=== PATIENT | male | born 1955 | race African-American/Black ===

== ENCOUNTER 2020-06-03 08:30 | Inpatient (IN) | payer MEDICAID, SELFPAY ==
[2020-06-03] VITALS (30 sets, daily range): BP systolic 110–130; BP diastolic 77–103; PULSE 102–119; RESP 14–29; TEMP 35.9–36.8; O2SAT 96–100; BMI 18.2
--- NOTE | ~2020-06-03 | US_ITS ---
EXAMINATION:US venous doppler LE BI INDICATION:Leg pain TECHNIQUE: Multiple grayscale, color flow and Doppler images of the right and left lower extremity de ep venous systems were obtained and reviewed. COMPARISON:No prior studies for comparison. FINDINGS: The common femoral, superficial femoral and popliteal veins demonstrate normal respiratory variation, augmentation and compressibility. Color flow is also seen within the posterior tibial, pe roneal, greater saphenous and profunda veins. IMPRESSION: 1: No lower extremity deep venous thrombosis. Reviewed, dictated and finalized at location A. IC SPEAKING TEACHER
--- NOTE | ~2020-06-03 | XR_ITS ---
EXAMINATION: XR mandible min 4V EXAM DATE: 06/04/2020 09:54 INDICATION: checking for metal in jaw. TECHNIQUE: Frontal, steep frontal, bilateral lateral with tilt projections of the mandible. There i s no prior study for comparison. FINDINGS: There are 2 orthopedic metallic plates along the mandible with supporting screws. Hardware was likely for mandibular fractures which appear to have healed. Patient is edentulous. There is a m etal neck less which reportedly cannot be taken off and patient is declining having it cut off at thi s time. IMPRESSION: Metallic neck less, mandibular plates and screws. Reviewed, dictated and finalized at location A. MATIC LEHR OPERATOR
--- NOTE | ~2020-06-03 | CT_ITS ---
EXAMINATION: CTA chest PE protocol DATE: 06/03/2020 13:12 INDICATION: Possible pulmonary embolism on abdominal and pelvis CT, fall TECHNIQUE: Computed tomography angiography (CTA) of the chest was performed with 100 mL Omnipaque-350 intravenous contrast timed to evaluate the pulmonary arteries. Coronal maximum intensity projection 3D-reconstructions were created by the technologist. The dose-length product (DLP) was 278.66 mGy-cm. Automated exposure control and iterative reconstruction technique were employed. COMPARISON: None. FINDINGS: The pulmonary arteries are well-opacified. No pulmonary embolism is identified. There is en dobronchial debris in the right lower lobe which accounts for the finding in question on the abdomina l and pelvis CT. There are patchy nodular and tree-in-bud opacities of the right lower lobe. There is mild emphysema. No pathologically enlarged thoracic lymph nodes are identified. The heart size is no rmal. There is mild thoracic spondylosis. Contrast from earlier CT partially opacifies the urinary tr act. IMPRESSION: 1. No pulmonary embolism identified. 2. Endobronchial debris in the right lower lobe accounts for the CT finding in question. Tree-in-bud and patchy nodular airspace opacities of the right lower lobe likely reflect aspiration pneumonia. Reviewed, dictated and finalized at location A. UCT CONTROL AND LOGISTICS ANALYST
--- NOTE | ~2020-06-03 | CT_ITS ---
EXAMINATION: CT abdomen pelvis w con INDICATION: Hematuria TECHNIQUE: Computed tomographic images of the abdomen and pelvis were obtained after the administrati on of 100 cc of Omnipaque 350 intravenous contrast. The dose-length product (DLP) was 284.58 mGy-cm. Automated exposure control and iterative reconstruction technique were employed. COMPARISON: None available FINDINGS: Airspace opacities are present in the right lower lobe. Although limited by motion artifact there are questionable pulmonary emboli in the right lower lobe. The heart size is normal. The liver is diffusely low in attenuation when compared with the spleen, consistent with hepatic steatosis. Th e spleen, pancreas, gallbladder, and adrenal glands are normal. The kidneys are unremarkable. No path ologically enlarged abdominal or pelvic lymph nodes are identified. There is calcified atherosclerosi s of the aorta and many of the other arteries. The appendix is normal. There is no free intraperitone al gas or evidence of bowel obstruction. There are tiny stones in the urinary bladder which measure u p to 2 mm. Foci of gas in the nondependent portion of the urinary bladder may reflect catheterization . There is hyperattenuating material in the urethra of unclear significance. There is circumferential wall thickening of the sigmoid colon. There is mild lumbar spondylosis. IMPRESSION: 1. Tiny stones in the urinary bladder which may cap for the patient's hematuria. 2. Possible pulmonary emboli in the right lower lobe. Dedicated CT of the pulmonary arteries is recom mended. This finding and recommendation were discussed with Dr. Any Caceres MD in the Emergency De partment at 1233hours on 06/03/2020. 3. Mild wall thickening of the sigmoid colon which could reflect colitis. 4. Right basilar airspace opacities which could be infectious/inflammatory or possibly pulmonary infa rct if pulmonary emboli are present. Reviewed, dictated and finalized at location A. T TECHNICIAN IMPRESSION: 1. Tiny stones in the urinary bladder which may cap for the patient's hematuria . 2. Possible pulmonary emboli in the right lower lobe. Dedicated CT of the pulmo nary arteries is recommended. This finding and recommendation were discussed wi Dr. Any Caceres MD in the Emergency Department at 1233hours on 06/03/2020 . 3. Mild wall thickening of the sigmoid colon which could reflect colitis. 4. Right basilar airspace opacities which could be infectious/inflammatory or p ossibly pulmonary infarct if pulmonary emboli are present.
--- NOTE | ~2020-06-03 | XR_ITS ---
EXAMINATION: XR chest 1V portable EXAM DATE: 06/03/2020 10:05 INDICATION: weakness . TECHNIQUE: Portable AP frontal chest x-ray was obtained. There is no prior study for comparison. FINDINGS: Small amount of right infrahilar atelectasis or infection. The lungs are otherwise clear. M oderate hyperinflation. There are no pleural effusions. The cardiomediastinal silhouette is within n ormal limits. There is no pneumothorax suspected. The bones and soft tissues are unremarkable. IMPRESSION: 1. Small amount of right infrahilar atelectasis or infection. 2. Hyperinflation. Reviewed, dictated and finalized at location B. EX CLERK
--- NOTE | ~2020-06-03 | CT_ITS ---
EXAMINATION: CT brain wo con EXAM DATE: 06/03/2020 13:13 INDICATION: Head injury. TECHNIQUE: Spiral CT of the head was performed without contrast. Axial, coronal and sagittal images were reviewed. The dose-length product (DLP) for this examination was 1210.67 mGy-cm. The exposure was tailored according to patient size, and iterative reconstruction (ASIR) was used as additional do se reduction technique. There is no prior study for comparison. FINDINGS: There is no acute intraparenchymal hemorrhage. No evidence of intraparenchymal brain mass lesion. No evidence of acute infarction. There is no mass effect or midline shift. The ventricles are normal in size. There are no extra-axial collections. There are no acute calvarial fractures. T he orbits are unremarkable. Soft tissue is unremarkable. The visualized sinuses and mastoid air óscar ls are well aerated. Contrast within the arteries and sinuses from abdominal CT performed earlier s . IMPRESSION: No acute intracranial findings. Reviewed, dictated and finalized at location B. INE MAINTENANCE MECHANIC
--- NOTE | ~2020-06-03 | MR_ITS ---
EXAMINATION: MR brain/brain stem wo/w con EXAM DATE: 06/04/2020 10:51 INDICATION: Weakness and falling head injury. TECHNIQUE: Magnetic resonance imaging (MRI) of the brain/brain stem obtained without contrast. Sagit kush T1, axial diffusion, gradient echo (T2*), T1, T2, FLAIR sequences obtained. Patient was then inj ected with 12 cc intravenous Multihance contrast. Axial and coronal postcontrast T1 weighted sequence s obtained. Correlation is made to Head CT from 06/03. FINDINGS: There are no areas of restricted diffusion to suggest acute infarction. There is no acute hemorrhage seen on the T2*, a hemosiderin sensitive sequence. No intraparenchymal brain mass lesion. There is mild periventricular and subcortical T2/FLAIR signal hyperintensity, nonspecific but probab ly related to small vessel ischemic disease (microangiopathy). There is mild to moderate prominence of the sulci and ventricles related to cerebral atrophy. There are no extra-axial collections. Fl ow voids are seen in the cerebral arteries on the T2-weighted sequences consistent with their expecte d patency. The orbits are unremarkable. Soft tissue is unremarkable. IMPRESSION: 1. No acute intracranial findings. 2. Chronic age related findings. Reviewed, dictated and finalized at location A. NE TEST CELL TECHNICIAN
--- NOTE | ~2020-06-03 | MR_ITS ---
EXAMINATION: MR lumbar spine wo con DATE: 06/04/2020 14:42 INDICATION: Weakness. Bilateral paresthesias. TECHNIQUE: Magnetic resonance imaging (MRI) of the lumbar spine was performed without intravenous con trast. Sequences included sagittal T2-weighted FSE, sagittal STIR FSE, sagittal T1-weighted FSE, and axial T2-weighted FSE. COMPARISON: None FINDINGS: There is 3 mm retrolisthesis of L4 on L5. Vertebral body heights are normal. Intervertebral disc heights are normal. The distal spinal cord signal intensity is normal. The conus medullaris is at L2. The following disc levels are specifically discussed: L1-L2: The disc does not extend beyond the endplate margin. There is moderate bilateral facet joint o steoarthritis. There is no neural foraminal stenosis. There is no central canal stenosis. L2-L3: The disc is bulging. There is severe bilateral facet joint osteoarthritis. There is mild bilat eral neural foraminal stenosis. There is mild central canal stenosis. L3-L4: The disc is bulging. There is severe bilateral facet joint osteoarthritis. There is mild bilat eral neural foraminal stenosis. There is mild central canal stenosis. L4-L5: The disc is bulging and has an annular fissure. There is severe bilateral facet joint osteoart hritis. There is mild right and moderate left neural foraminal stenosis. There is mild central canal stenosis. L5-S1: The disc does not extend beyond the endplate margin. There is severe bilateral facet joint ost eoarthritis. There is no neural foraminal stenosis. There is no central canal stenosis. IMPRESSION: 1. Mild lumbar spondylosis. Reviewed, dictated and finalized at location E. INAL DEFENSE ATTORNEY IMPRESSION: 1. Mild lumbar spondylosis.
--- NOTE | ~2020-06-03 | US_ITS ---
EXAMINATION: US carotid duplex BI DATE: 06/03/2020 16:18 INDICATION: Difficulty walking. Numbness. TECHNIQUE: Grayscale, color Doppler, and pulsed Doppler images of the cervical carotid arteries were obtained. The degree of vessel stenosis is placed in one of the following categories: normal, <50%, 5 0-69%, >=70% but less than near-occlusion, near-occlusion, or total occlusion. Note that percent sten osis relative to normal distal artery lumen diameter is indirectly measured from velocity measurement s as described by Mike, et al. Radiology 2003; 229:340-346. Notes: Normal: Peak systolic velocity <125 centimeters/sec and no plaque <50%. Peak systolic velocity <125 ( EDV <40; ICA/CCA PSV ratio <2.0; used these factors only a tandem lesions or low cardiac output or co ntralateral disease) 50-69 %: PSV 125-230 (EDV 40-100; ratio 2-4) >= 70% but less than near occlusion: PSV greater than 230 (EDV > 100; ratio> 4.0) Near Occlusion: PSV that is variable; markedly narrowed lumen Occlusion: Absent flow on color/spectral Doppler and no lumen on king scale. COMPARISON: None. FINDINGS: RIGHT: The right common carotid artery (CCA) peak systolic velocity (PSV) is 69 cm/s. The right internal car otid artery (ICA) PSV is 57 cm/s. The right ICA end-diastolic velocity (EDV) is 31 cm/s. The right IC A/CCA PSV ratio is 0.8. The external carotid artery (ECA) PSV is 40 cm/s. There is antegrade flow in the right vertebral artery. LEFT: The left CCA PSV is 58 cm/s. The left ICA PSV is 59 cm/s. The left ICA EDV is 31 cm/s. The left ICA/C CA PSV ratio is 1. The ECA PSV is 30 cm/s. There is antegrade flow in the left vertebral artery. IMPRESSION: 1. Less than 50% stenosis in the right internal carotid artery by sonographic criteria. 2. Less than 50% stenosis in the left internal carotid artery by sonographic criteria. Reviewed, dictated and finalized at location A. M PLANT OPERATOR IMPRESSION: 1. Less than 50% stenosis in the right internal carotid artery by sonographic trent nj. 2. Less than 50% stenosis in the left internal carotid artery by sonographic pako sgae.
--- NOTE | 2020-06-03 08:48 | PC.NURSE ---
Note when cleansing patient of caked on stool that patient has open sores to bottom. Pt also has a swollen area to left buttock that he states was dx as a lipoma approx 7-8 months ago. States the area has been increasing in size.
--- NOTE | 2020-06-03 09:05 | ECG_ITS ---
Measurements Intervals [place] Rate: 116 P: 82 WA: 140 QRS: -51 QRSD: 89 T: 83 QT: 340 QTc: 473 Interpretive Statements SINUS TACHYCARDIA POSSIBLE LEFT ATRIAL ENLARGEMENT LEFT ANTERIOR FASCICULAR BLOCK BORDERLINE ST-T WAVE ABNORMALITY- ANTEROLAT/HIGH LAT LEADS BASELINE ARTIFACT- I, II, AVR, AVL ABNORMAL ECG Electronically Signed On 06-03-2020 10:53:58 OUTSIDE SALES INSPECTOR by Lauri Estrada D.O.
--- NOTE | 2020-06-03 09:18 | ED.GENADULT ---
HPI - General Adult General Chief complaint: Weakness Stated complaint: MULTIPLE C/O Time Seen by Provider: 06/03/20 08:31 Source: patient and EMS Mode of arrival: EMS Limitations: no limitations History of Present Illness HPI narrative: 64 years old -[place] male brought to the emergency room by ambulance because of inability to take care of himself. Patient lives with a friend, sitting most of the time in his stool and urine, generally weak. Patient does not remember that he been to the doctor before, does not take medications. Patient denying any fever, chills, nausea, vomiting. Patient reports inability to move his lower extremity for 4 to 6 months. Denies any pain. Related Data Home Medications Medication Instructions Recorded Confirmed No Home Medications 06/03/20 06/03/20 Allergies Allergy/AdvReac Type Severity Reaction Status Date / Time No Known Allergies Allergy Verified 06/03/20 08:38 Review of Systems Review of Systems: Narrative: CONSTITUTIONAL: Denies fever, chills, or sweats. EYES: Denies visual changes, redness, or discharge. ENT: Denies rhinorrhea, congestion, sore throat, or otalgia. CARDIOVASCULAR: Denies chest pain, palpitations, or edema. RESPIRATORY: Denies cough or dyspnea. GASTROINTESTINAL: Denies abdominal pain, nausea, vomiting, or diarrhea. GENITOURINARY: Denies dysuria or hematuria. SKIN: Denies rash or itching. MUSCULOSKELETAL: Generally weak NEUROLOGIC: Denies headache, numbness, or weakness. PSYCHIATRIC: Denies anxiety or depression. [facility] Social History Social History Gender identity (if verbalized by the patient): Male Exam Narrative: Exam Narrative: General appearance: Well-developed, malnourished, severe poor hygiene with smell of urine and stool all over Skin: Normal color Head: Normocephalic, nontraumatic Eyes: Clear conjunctiva Chest and respiratory: Airway patent, no respiratory distress, no accessory muscle use Heart: Regular rate/rhythm Abdomen: Soft, nontender, no organomegaly, quiet bowel sounds Vascular: Normal peripheral pulses, normal capillary refill. Musculoskeletal: Normal range of motion, nontender back Neurologic: Alert and oriented ?3, weakness of the lower extremity Course Course Emergency Course: Stable Vital Signs Vital signs: Vital Signs Temperature 36.7 C 06/03/20 08:40 Pulse Rate 102 H 06/03/20 08:40 Respiratory Rate 15 06/03/20 08:40 Blood Pressure 110/85 06/03/20 08:40 Pulse Oximetry 97 06/03/20 08:40 Temperature 36.7 C 06/03/20 08:40 Pulse Rate 114 H 06/03/20 10:46 Respiratory Rate 20 06/03/20 10:46 Blood Pressure 114/99 H 06/03/20 10:46 Pulse Oximetry 96 06/03/20 10:46 Medical Decision Making MDM Narrative Medical decision making narrative: Patient presents with general weakness and inability to manage to take care of himself. Labs, UA, chest x-ray, IV fluid ordered. Further plan to follow Differential Diagnosis Differential Diagnosis: Electrolyte imbalance, urinary tract infection, rhabdomyolysis, penitentiary placement Vital Signs Vital Signs: Vital Signs Temperature 36.7 C 06/03/20 08:40 Pulse Rate 102 H 06/03/20 08:40 Respiratory Rate 15 06/03/20 08:40 Blood Pressure 110/85 06/03/20 08:40 Pulse Oximetry 97 06/03/20 08:40 Temperature 36.7 C 06/03/20 08:40 Pulse Rate 114 H 06/03/20 10:46 Respiratory Rate 20 06/03/20 10:46 Blood Pressure 114/99 H 06/03/20 10:46 Pulse Oximetry 96 06/03/20 10:46 Lab Data Result diagrams: 06/03/20 10:25 06/03/20 10:25 Labs: Lab Results 06/03/20 06/03/20 12/2
[2020-06-03] MEDS: SODIUM CHLORIDE 0.9% IV 1,000 ML 999 ML IV CONT (09:46)
[2020-06-03 10:34] LABS: Basophils Percent Auto 0.1 % (0.2-1.2); Hemoglobin 10.3 g/dL (14.0-18.0); Immature Granulocyte Absolute 0.08 K/mm3 (0.00-0.031); Lymphocytes Absolute Auto 1.22 K/mm3 (0.9-3.2); Lymphocytes Percent Auto 15.3 % (18.3-44.2); Mean Corpuscular HGB Conc 34.3 g/dl (32-36); Mean Corpuscular Hemoglobin 32.1 pg (26-34); Mean Corpuscular Volume 93.5 fl (80-100); Mean Platelet Volume 10.3 fl (7.4-10.4); Monocytes Absolute Auto 0.9 K/mm3 (0.1-0.6); Monocytes Percent Auto 10.8 % (2.6-8.5); Neutrophils Absolute Auto 5.8 K/mm3 (1.3-6.7); Neutrophils Percent Auto 72.8 % (45.5-73.1); Nucleated Red Blood Cells Absolute Auto 0.1 K/mm3 (0.0-0.012); Nucleated Red Blood Cells Perc 0.6 % (0.0-0.2); Platelet Count Result 284 k/mm3 (150-375); Red Blood Count 3.21 M/mm3 (4.6-6.20); Red Cell Distribution Width 22.3 % (11.5-14.5)
[2020-06-03 10:44] LABS: INR 0.9; Partial Thromboplastin Time 28.5 SECONDS (22.3-36.8); Prothrombin Time 12.8 Seconds (11.1-14.7)
[2020-06-03 10:46] LABS: Alanine Aminotransferase 27 U/L (4-50); Albumin Level 4.1 g/dL (3.5-5.1); Alkaline Phosphatase 133 U/L (38-126); Anion Gap 16 mmol/L (8-16); Aspartate Amino Transferase 81 U/L (17-59); Bilirubin,Total 0.9 mg/dL (0.2-1.3); Blood Urea Nitrogen 30 mg/dL (9-20); Calcium 9.1 mg/dL (8.4-10.2); Carbon Dioxide 25 mmol/L (22-30); Chloride 95 mmol/L (98-107); Estimated CRCL calculation 83 ml/min; Estimated Glomerular Filt Rate > 60; Glucose 120 mg/dL (75-110); Sodium 136 mmol/L (137-145)
[2020-06-03 10:48] LABS: Add Urine Microscopic? YES; Appearance Urine Clear (Clear); Bacteria Urine Trace /hpf; Bilirubin Urine Negative (Negative); Blood Urine 3+ (Negative); Color Urine Amber (Yellow); Glucose Urine UA Negative (Negative); Ketones Urine 1+ mg/dL (Negative); Leukocyte Esterase Ur Negative LEU/UL (Negative); Mucus Urine Rare /lpf; Nitrate Urine Negative (Negative); Protein Urine 2+ mg/dL (Negative); RBC Urine >75 /hpf (0-2); Specific Grav Ur 1.023 (1.001-1.035); Squamous Epithelial Cell Urine Rare /hpf (Few)
[2020-06-03 10:55] LABS: Creatine Kinase 41 U/L (55-170)
--- NOTE | 2020-06-03 13:34 | PC.NURSE ---
This patient, Franko Gee, was admitted to Medical Room 349-01. Patient/family oriented to hospital policies and general routines including ID bracelet, bed and alarms, visiting hours, pain management, procedures, bathroom and other care routines, personal items, smoking policy, room service/diet, and visiting hours. Information on how to activate the Rapid Response Team has been discussed. Patient/Family are encouraged to report perceived risks to care and to ask questions if they do not understand what they are told or what they should do.
--- NOTE | 2020-06-03 13:38 | PCCCNOTE ---
Discussed case with Dr Caceres who does not feel this is a case of the patient being neglected but a case of self-neglect. Pt was a, ox4 at time of Dr Caceres's exam. APS not called at this time.
[2020-06-03] MEDS: SODIUM CHLORIDE 0.9% IV 1,000 ML 125 ML IV CONT ×2 (14:09→22:40)
--- NOTE | 2020-06-03 14:44 | PM.IMHP ---
H&P: HPI History of Present Illness Date/Time: 06/03/20 14:44 Chief Complaint: Hematuria Narrative: Franko Gee is a 64 year old male who lives with some roommates. The patient states that he is on disability. He is not on any medications. Or had any surgeries. Doctor and decided to call an ambulance today because he is not a able to take care of himself. The patient stated that he was not able to have a bowel movement for weak so he took a laxative and he could not control it. He has been incontinent of stool and urine and is generally weak. He had no fever chills or any nausea vomiting. Patient had complained of having some double vision since he fell 2 weeks ago. He has an abrasion to his forehead. The patient also tells me he has been having some numbness and tingling to both of his hands. 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 The patient now has watery liquid light brown stools. H&H 10.3 and 30.0. No blood was noted in his stool. He is not on any blood thinners. H&H 10.30.0. Patient's AST is 81. Alkaline phosphatase 133. Patient had greater than Fedder 5 RBCs and 10-15 wbc's negative for leukocyte esterase. CT a the chest was read as no pulmonary embolism endobronchial did bruise in the right lower lobe accounts with CT findings. Head CT was taken since he fell and has diplopia since then. It was read as no acute intracranial findings. CT tiny stones in the urinary bladder with a however patient's hematuria be a mild wall thickening in the sigmoid colon which could reflect colitis. Right basilar airspace opacities which could be infectious or inflammatory. Patient appears to be emaciated. He has some large lipoma to the right buttocks which is larger than a grapefruit. Patient was given IV fluids. Patient was given miconazole cream for his macerated skin to his buttocks. Patient is being admitted to observation on the date of service of 06/03/2020 Review of Systems Review of Systems: All systems reviewed & are unremarkable except as noted in HPI and below Constitutional: Constitutional: Reports as per HPI and Reports no additional constitutional complaints Eyes: Eyes: Reports as per HPI and Reports no additional eye complaints ENT: Reports system reviewed and no additional complaints, except as documented and Reports Normal hearing present Cardiovascular: Cardiovascular: Reports no additional cardiovascular complaints Respiratory: Respiratory: Reports no additional respiratory complaints and Reports no additional respiratory complaints Gastrointestinal: Gastrointestinal: Reports as per HPI and Reports no additional gastrointestinal complaints Musculoskeletal: Musculoskeletal: Reports no additional musculoskeletal complaints Integumentary/Breasts: Skin/Breast: Reports system reviewed and no additional complaints, except as docu and Reports as per HPI Neurologic: Reports system reviewed and no additional complaints, except as documented, Reports as per HPI and Reports Normal hearing present Psychiatric: Psychiatric: Reports no additional psychiatric complaints and Reports as per HPI Endocrine: Endocrine: Reports no additional endocrine complaints Hematologic/Lymphatic: Hematologic/Lymphatic: Reports no additional hematologic/lymphatic complaints Allergic/Immunologic: Allergic/Immunologic: Reports no additional allergic/immunologic complaints PMFSH Past Medical History Medical History (Updated 06/03/20 @ 15:31 by Katty Hutchins NP) Anemia Fibroma Surgical History Surgical History (Updated 06/03/20 @ 15:01 by Katty Hutchins NP) No pertinent past surgical history Family History Family History (Updated 06/03/20 @ 15:12 by Katty Hutchins NP) Mother Cancer Father Cerebrovascular accident Social History Social History (Updated 06/03/20 @ 15:15 by Katty Hutchins NP) Social Histo
[2020-06-03 17:51] LABS: HIV 1/2 Ab P24 Ag Result Negative (Negative)
[2020-06-04] VITALS (9 sets, daily range): BP systolic 111–128; BP diastolic 80–84; PULSE 94–102; RESP 17–18; TEMP 36.1–37.1; O2SAT 100; BMI 18.2
[2020-06-04 03:21] LABS: IFOB Positive Control Positive; Immunochemical Fecal Occult Bl Positive (N)
[2020-06-04] MEDS: SODIUM CHLORIDE 0.9% IV 1,000 ML 125 ML IV CONT (06:38)
[2020-06-04 06:44] LABS: Basophils Percent Auto 0.1 % (0.2-1.2); Hematocrit 24.4 % (42.0-52.0); Hemoglobin 8.2 g/dL (14.0-18.0); Immature Granulocyte Absolute 0.07 K/mm3 (0.00-0.031); Lymphocytes Absolute Auto 1.39 K/mm3 (0.9-3.2); Lymphocytes Percent Auto 19.8 % (18.3-44.2); Mean Corpuscular HGB Conc 33.6 g/dl (32-36); Mean Corpuscular Hemoglobin 31.2 pg (26-34); Mean Corpuscular Volume 92.8 fl (80-100); Mean Platelet Volume 9.6 fl (7.4-10.4); Monocytes Absolute Auto 1.2 K/mm3 (0.1-0.6); Monocytes Percent Auto 17.1 % (2.6-8.5); Neutrophils Absolute Auto 4.4 K/mm3 (1.3-6.7); Nucleated Red Blood Cells Perc 0.6 % (0.0-0.2); Platelet Count Result 256 k/mm3 (150-375); Red Blood Count 2.63 M/mm3 (4.6-6.20); Red Cell Distribution Width 21.1 % (11.5-14.5)
[2020-06-04 07:02] LABS: Lactic Acid Reflex 1.1 mmol/L (0.7-2.1)
[2020-06-04 07:39] LABS: Alanine Aminotransferase 22 U/L (4-50); Albumin Level 3.2 g/dL (3.5-5.1); Alkaline Phosphatase 114 U/L (38-126); Anion Gap 11 mmol/L (8-16); Aspartate Amino Transferase 65 U/L (17-59); Bilirubin,Total 0.5 mg/dL (0.2-1.3); Blood Urea Nitrogen 22 mg/dL (9-20); Calcium 8.3 mg/dL (8.4-10.2); Carbon Dioxide 26 mmol/L (22-30); Chloride 99 mmol/L (98-107); Estimated CRCL calculation 85 ml/min; Estimated Glomerular Filt Rate > 60; Glucose 126 mg/dL (75-110); Potassium 2.8 mmol/L (3.4-5.0); Sodium 136 mmol/L (137-145)
[2020-06-04 07:42] LABS: Magnesium 1.9 mg/dL (1.6-2.3)
[2020-06-04 09:04] LABS: Thyroid Stimulating Hormone Reflex 0.771 uIU/mL (0.465-4.68)
--- NOTE | 2020-06-04 10:56 | PCSTNOTE ---
Patient was getting MRI and unavailable for Bedside swallow
--- NOTE | 2020-06-04 11:18 | WPDGIPROGNO ---
Progress Note: A&P Additional Plan [facility] 04 Jun 2020 Full consult dictated Please check B12, folate, retic and iron panel Consider for colon/egd when stable #[id number] Subjective Date/time seen: 06/04/20 11:18 Objective Data Vital Signs Vital Signs: Vital Signs - 24 hr 06/03/20 11:30 06/03/20 11:31 06/03/20 11:45 Temperature Pulse Rate 118 H 110 H 112 H Respiratory Rate 24 H 21 H 19 Blood Pressure 114/96 H Pulse Oximetry 100 99 98 06/03/20 11:46 06/03/20 11:47 06/03/20 12:08 Temperature Pulse Rate 112 H 104 H 106 H Respiratory Rate 19 19 29 H Blood Pressure 115/92 H Pulse Oximetry 99 99 06/03/20 12:22 06/03/20 12:30 06/03/20 12:45 Temperature Pulse Rate 113 H 114 H Respiratory Rate 20 25 H 18 Blood Pressure 110/83 Pulse Oximetry 99 98 97 06/03/20 12:46 06/03/20 13:13 06/03/20 14:00 Temperature 35.9 C L Pulse Rate 115 H 107 H 114 H Respiratory Rate 21 H 22 H 20 Blood Pressure 117/85 Pulse Oximetry 97 100 99 06/03/20 16:00 06/03/20 21:18 06/03/20 21:25 Temperature 36.8 C Pulse Rate 108 H Respiratory Rate 16 Blood Pressure 117/85 121/77 121/77 Pulse Oximetry 100 06/04/20 00:00 06/04/20 04:00 06/04/20 06:00 Temperature Pulse Rate 96 Respiratory Rate 17 Blood Pressure 126/81 122/81 120/84 Pulse Oximetry 100 06/04/20 06:18 Temperature 37.1 C Pulse Rate Respiratory Rate Blood Pressure Pulse Oximetry Intake/Output Intake/Output: Intake & Output 06/01/20 06/02/20 06/03/20 06/04/20 23:59 23:59 23:59 23:59 Intake Total 2480 1000 Output Total 200 350 Balance 2280 650 Meds/Results Medications: Active Medications Generic Name Dose Route Start Last Admin Trade Name Freq PRN Reason Stop Dose Admin Chlordiazepoxide HCl 25 mg 06/03/20 15:25 Chlordiazepoxide (*Crx) 25 Mg Capsule PO Q6H PRN Withdrawal Folic Acid 1 mg 12/24/20 09:00 Folic Acid 1 Mg Tablet PO DAILY GERARDO Sodium Chloride 1,000 mls @ 125 mls/hr 06/03/20 11:40 06/04/20 06:38 Normal Saline Iv IV CONT 125 mls/hr .Q8H GERARDO Administration Ceftriaxone Sodium/Dextrose 1 gm in 50 mls @ 100 mls/hr 06/04/20 09:00 Rocephin 1 Gm/D5w 50 Ml IVPB Q24H GERARDO Metronidazole 500 mg in 100 mls @ 100 mls/hr 06/04/20 09:00 Flagyl 500 Mg/Iso Soln 100 Ml IVPB Q8H GERARDO Lorazepam 0.5 mg 06/03/20 15:25 Lorazepam Inj (*Crx) 2 Mg/Ml Vial IV PUSH Q6H PRN Anxiety Miconazole Nitrate 1 applic 06/03/20 21:00 06/03/20 21:15 Miconazole 2% Antifungal Ointment 56 Gm TOPICAL 1 applic Q12HR GERARDO Administration Multi-Ingred Cream/Lotion/Oil/Oint 1 applic 06/04/20 09:00 Eucerin Cream 120 [facility] Potassium Chloride 20 meq 06/04/20 18:00 Potassium Chloride 20 Meq Tablet PO 06/04/20 18:01 ONCE ONE Thiamine HCl 100 mg 06/04/20 09:00 Thiamine Hcl 100 [facility] [place] Results: ITS Impressions Chest X-Ray 06/03/20 10:06 IMPRESSION: 1. Small amount of right infrahilar atelectasis or infection. 2. Hyperinflation. Abdomen/Pelvis CT 06/03/20 12:04 IMPRESSION: 1. Tiny stones in the urinary bladder which may cap for the patient's hematuria. 2. Possible pulmonary emboli in the right lower lobe. Dedicated CT of the pulmonary arteries is recommended. This finding and recommendation were discussed with Dr. Any Caceres MD in the Emergency Department at 1233hours on 06/03/2020. 3. Mild wall thickening of the sigmoid colon which could reflect colitis. 4. Right basilar airspace opacities which could be infectious/inflammatory or possibly pulmonary infarct if pulmonary emboli are present. Head CT 06/03/20 13:13 IMPRESSION: No acute intracranial findings. Chest CTA 06/03/20 13:16 IMPRESSION: 1. No pulmonary embolism identified. 2. Endobronchial debris in the right lower lobe accounts for the CT finding in question. Tree-in-bud and
[2020-06-04] MEDS: POTASSIUM CHLORIDE 20 MEQ TABLET 40 MEQ PO (11:20)
[2020-06-04] MEDS: THIAMINE HCL 100 MG TABLET PO (11:28)
[2020-06-04] MEDS: FOLIC ACID 1 MG TABLET PO (11:28)
[2020-06-04] MEDS: EUCERIN CREAM 120 GM JAR 1 APPLIC TOPICAL (11:29)
[2020-06-04] MEDS: metroNIDAZOLE 500 MG/ISO 100ML 500 MG/100 ML BAG 100 MG IVPB ×2 (12:22→18:32)
--- NOTE | 2020-06-04 12:46 | WPDNEURCNPN ---
Assessment and Plan Assessment and plan (1) Debility: Code(s): R53.81 - Other malaise Status: Acute (2) Tobacco abuse: Code(s): Z72.0 - Tobacco use Status: Acute (3) Alcohol abuse: Code(s): F10.10 - Alcohol abuse, uncomplicated Status: Acute (4) Fibroma: Code(s): D21.9 - Benign neoplasm of connective and other soft tissue, unspecified Status: Chronic (5) Anemia: Code(s): D64.9 - Anemia, unspecified Status: Acute (6) Hematuria: Qualifiers: Hematuria type: unspecified type Qualified Code(s): R31.9 - Hematuria, unspecified Code(s): R31.9 - Hematuria, unspecified Status: Acute (7) Unable to manage behaviors related to nutrition: Code(s): Z78.9 - Other specified health status Status: Acute (8) Unable to ambulate: Code(s): R26.2 - Difficulty in walking, not elsewhere classified Status: Acute (9) Weakness: Code(s): R53.1 - Weakness Status: Acute Additional Plan stable will need the continuous medical treatment neurologically at this stage is stable Consult date: 06/04/20 Time Seen: 12:15 HPI: Franko Gee is a 64 year old male 64 years old has been admitted to the hospital for the complaints of blood in urine. Patient is reportedly on disability. 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 Review of Systems Review of Systems: All systems reviewed & are unremarkable except as noted in HPI and below PMFSH Past Medical History Medical History Anemia Fibroma Surgical History Surgical History No pertinent past surgical history Family History Family History Mother Cancer Father Cerebrovascular accident Social History Social History Social History: The patient is not and has a daughter. He is disabled. He lives with roommates. He states that he drinks about a half a pt of vodka a day. Patient smokes about 6-8 cigarettes a day. He is a full code. He does not have a durable power assistant county attorney for healthcare. He said his sister Lyndsey may be able to the the the power assistant county attorney. He wishes to be a full code. No illicit drugs or marijuana. Smoking status: Current every day smoker Tobacco type: cigarettes Alcohol intake: current Drinks per week: 10 Substance use: never Gender identity (if verbalized by the patient): Male Spiritual care concerns: No Meds Home Medications and Allergies Home Medications Medication Instructions Recorded Confirmed Type No Home Medications 06/03/20 06/03/20 History Allergies Allergy/AdvReac Type Severity Reaction Status Date / Time No Known Allergies Allergy Verified 06/03/20 08:38 Vital Signs Vital Signs - 24 hr 06/03/20 13:13 06/03/20 14:00 06/03/20 16:00 Temperature 35.9 C L Pulse Rate 107 H 114 H Respiratory Rate 22 H 20 Blood Pressure 117/85 117/85 Pulse Oximetry 100 99 06/03/20 21:18 06/03/20 21:25 06/04/20 00:00 Temperature 36.8 C Pulse Rate 108 H Respiratory Rate 16 Blood Pressure 121/77 121/77 126/81 Pulse Oximetry 100 06/04/20 04:00
--- NOTE | 2020-06-04 13:26 | PM.IMPN ---
Progress Note: A&P Assessment and Plan (1) Lower extremity weakness: Code(s): R29.898 - Other symptoms and signs involving the musculoskeletal system Status: Acute Assessment and Plan: This is the patients main complaint -could be deconditioning. PT and OT have been ordered. He is a mod assist right now -Continue PT and OT, may need placement -MRI of the brain is normal. Becaues of the paraesthesias, will order lumbar MRI -Neuropathy? RLS? Other neurological conditions seem less likely. Will order ceruloplasmin due to eye abnormality -Neurology consulted (2) PNA (pneumonia): Code(s): J18.9 - Pneumonia, unspecified organism Status: Acute Assessment and Plan: Noted on CT of the lung -Speech therapy saw the pt and there was no evidence of aspiration -Continue ceftriaxone and flagyl (3) Heme positive stool: Code(s): R19.5 - Other fecal abnormalities Status: Acute Assessment and Plan: Noted on sample -Pt has possible colitis -Continue ceftriaxone and flagyl -GI consulted, recommends colonoscopy in near future (4) Colitis: Code(s): K52.9 - Noninfective gastroenteritis and colitis, unspecified Status: Acute Assessment and Plan: see above -Stool studies sent -diarrhea improving (5) Hematuria: Qualifiers: Hematuria type: unspecified type Qualified Code(s): R31.9 - Hematuria, unspecified Code(s): R31.9 - Hematuria, unspecified Status: Acute Assessment and Plan: No mention of this on exam today -await urine cx - Patient has tiny stones in the bladder. -recommend seeing urology outpt (6) Alcohol abuse: Code(s): F10.10 - Alcohol abuse, uncomplicated Status: Acute Assessment and Plan: The patient tells me that he has drinks about a half a pt of vodka a day -Continue CIWA -no signs of withdraw on exam -Continue ativan and librium PRN as needed (7) Tobacco abuse: Code(s): Z72.0 - Tobacco use Status: Acute Assessment and Plan: He smokes about 6-8 cigarettes a day -no nicotine patch desired -Advised to quit smoking (8) Weakness: Code(s): R53.1 - Weakness Status: Acute Assessment and Plan: As above (9) Anemia: Code(s): D64.9 - Anemia, unspecified Status: Acute Assessment and Plan: Iron, b12 and folate studies sent -Monitor hgb (10) Fibroma: Code(s): D21.9 - Benign neoplasm of connective and other soft tissue, unspecified Status: Chronic Assessment and Plan: He has a very large fibroma on the right buttocks -f/u outpt (11) Debility: Code(s): R53.81 - Other malaise Status: Acute Assessment and Plan: as above Time Spent With Patient Time with patient: 25 - 35 minutes Subjective Date/time seen: 06/04/20 13:26 Interval history: Pt is a 64 y/o male here for leg weakness. Pt was seen today and explains that his legs have been weak for a couple of weeks. He said it was a sudden onset and that he started to have numbness and tingling all the way up to his thigh. He says he is unable to bear weight on the legs due to weakness. He fell (after the leg weakness started) and hit his head and now sees double since then. He also mentions that his legs are restless at times. He has no new incontinence of bowel or bladder. He had some diarrhea yesterday but nothing today. He has never had a colonoscopy. Review of Systems Review of Systems: All systems reviewed & are unremarkable except as noted in HPI and below Exam Narrative: Exam Narrative: General: Well developed well nourished patient in NAD HEENT: normocephalic, eyes appear to have a ring around the iris. pupils equal and reactive Neck: supple Neuro: Alert and oriented x4. strength UE and LE 5/5. Able to lift both his legs off the bed but takes effort. Once they are up, his strength is strong
--- NOTE | 2020-06-04 15:09 | CONS_ITS ---
DATE OF CONSULTATION: 06/04/2020 HISTORY OF PRESENT ILLNESS: A 64-year-old male with a history of anemia and fibroma who presented to the hospital with weakness and altered bowel habits. I am now asked to provide GI evaluation at the request of the hospitalist service. Patient has no primary assistant speech language pathologist or physician. The patient states that prior to admission, he had no bowel movement for a week, then took laxatives which resulted in diarrhea and incontinence. This is improving. He has lost 35 pounds over the past 3 to 4 months related to inability to take care of himself. His appetite is stable. In general, he denies abdominal pain, nausea, vomiting, heartburn, trouble swallowing, previous diarrhea or constipation, hematochezia, or melena. There is no fever, jaundice, scleral icterus, dark urine, light stools, itching, hot or cold intolerance, chest pain, shortness of breath at rest, hematuria, dysuria, new cough or visual changes, easy bruising, tingling of the skin, bone pain or tremors. No endocarditis risk factors. ALLERGIES: NO KNOWN DRUG ALLERGIES. MEDICATIONS: No home medications. He denies regular use of aspirin or NSAIDs. SOCIAL HISTORY: Smoker. Drinks 1/2 pint of vodka per day. FAMILY HISTORY: Mother with some type of cancer when he was young. He does not know the primary. He has not had colonoscopy in at least 10 years if ever. PHYSICAL EXAM: GENERAL: Cachectic-appearing male lying in bed, no apparent distress. He has no lower extremity edema, jaundice, spider angioma, or palmar erythema. HEENT: Skull is normocephalic, atraumatic. Pupils nonicteric. Oropharynx clear. NECK: Supple without thyromegaly. LUNGS: Clear to auscultation. HEART: Rate and rhythm regular. S1, S2 normal. ABDOMEN: Normoactive bowel sounds, soft, nontender, nonrigid, nondistended without hepatosplenomegaly or masses. RECTAL: Deferred. NEURO: Conscious and alert x3. LABORATORY DATA: Labs on admission, hemoglobin 10, hematocrit 30, MCV 94. INR is 0.9, PTT is 29. HIV negative. Total bilirubin 0.9, alkaline phosphatase 133, AST 81, ALT is 27. On June 04, hemoglobin 8, hematocrit 24, MCV 92. Creatinine 0.7, ferritin is 1200, T bilirubin is 0.5, alkaline phosphatase 114, AST 65, ALT 22. Stool is heme positive. IMAGING: CT scan of the abdomen and pelvis is significant for wall thickening in the sigmoid colon as only significant GI finding. ASSESSMENT AND PLAN:: 1. Patient with chronic blood loss anemia, heme-positive stool, abnormal imaging digestive with CT scan showing wall thickening in the sigmoid colon. Certainly concern for gastrointestinal source of blood loss. Patient has no evidence of active GI bleeding. Recommend to follow H and H and transfuse as needed. Would avoid aspirin, nonsteroidals, and anticoagulants. Anemia lab evaluation, should include at least B12, folate, iron panel, and reticulocyte count. Consider colonoscopy and upper endoscopy when stable. The procedures of upper and lower endoscopy, their indications, alternatives of barium studies and risks including perforation, bleeding, infection, reaction to medication as well as possible need for blood or surgery were discussed with the patient. He voices understanding and agrees to proceed and provides informed consent. 1. Abnormal LFTs and history of alcohol abuse. This may be related to alcohol plus or minus relation to his illness, which could include urinary tract infection. His alkaline phosphatase already appears to be improved and we will observe for now. Hold on further liver evaluation at this time. Alcohol cessation is stressed. 2. Weight loss, may be related to any one of a number of problems, but overall inability to care for himself complic
[2020-06-04 16:07] LABS: Iron 160 ug/dL (49-181)
[2020-06-04 16:16] LABS: Percent Iron Saturation 51 % (20-50)
[2020-06-04 16:31] LABS: Transferrin 218 mg/dL (206-381)
[2020-06-04] MEDS: POTASSIUM CHLORIDE 20 MEQ TABLET PO (17:22)
[2020-06-04 17:32] LABS: Folic Acid 14.4 ng/mL (2.76->20)
[2020-06-05] VITALS (7 sets, daily range): BP systolic 103–133; BP diastolic 69–81; PULSE 96–100; RESP 16–18; TEMP 35.9–36.1; O2SAT 94–100
[2020-06-05] MEDS: metroNIDAZOLE 500 MG/ISO 100ML 500 MG/100 ML BAG 100 MG IVPB ×4 (01:14→23:59)
[2020-06-05 06:16] LABS: Eosinophils Percent Auto 0.2 % (0-4.4); Hemoglobin 7.7 g/dL (14.0-18.0); Immature Granulocyte Absolute 0.07 K/mm3 (0.00-0.031); Immature Granulocyte Percent A 1.1 % (0-0.5); Lymphocytes Absolute Auto 1.34 K/mm3 (0.9-3.2); Lymphocytes Percent Auto 21.4 % (18.3-44.2); Mean Corpuscular HGB Conc 33.5 g/dl (32-36); Mean Corpuscular Hemoglobin 31.7 pg (26-34); Mean Corpuscular Volume 94.7 fl (80-100); Mean Platelet Volume 9.8 fl (7.4-10.4); Monocytes Percent Auto 15.2 % (2.6-8.5); Neutrophils Absolute Auto 3.9 K/mm3 (1.3-6.7); Neutrophils Percent Auto 62.1 % (45.5-73.1); Nucleated Red Blood Cells Perc 0.6 % (0.0-0.2); Platelet Count Result 253 k/mm3 (150-375); Red Blood Count 2.43 M/mm3 (4.6-6.20); Red Cell Distribution Width 21.1 % (11.5-14.5); White Blood Count 6.3 K/mm3 (4.5-10.0)
[2020-06-05 06:48] LABS: Alanine Aminotransferase 19 U/L (4-50); Alkaline Phosphatase 119 U/L (38-126); Anion Gap 6 mmol/L (8-16); Aspartate Amino Transferase 74 U/L (17-59); Bilirubin,Total 0.4 mg/dL (0.2-1.3); Blood Urea Nitrogen 13 mg/dL (9-20); Carbon Dioxide 31 mmol/L (22-30); Chloride 101 mmol/L (98-107); Estimated CRCL calculation 98 ml/min; Estimated Glomerular Filt Rate > 60; Glucose 134 mg/dL (75-110); Magnesium 1.8 mg/dL (1.6-2.3); Phosphorus 2.3 mg/dL (2.5-4.5); Potassium 2.7 mmol/L (3.4-5.0); Sodium 138 mmol/L (137-145)
[2020-06-05] MEDS: POTASSIUM CHLORIDE 20 MEQ TABLET 40 MEQ PO (07:28)
[2020-06-05] MEDS: KCL 20 MEQ/SW 100 ML 100 ML 50 MEQ IVPB (08:00)
[2020-06-05] MEDS: MAGNESIUM OXIDE 400 MG TABLET PO (08:02)
[2020-06-05] MEDS: POTASSIUM PHOS/SODIUM PHOS 250 MG TABLET PO ×2 (08:02→17:21)
[2020-06-05] MEDS: THIAMINE HCL 100 MG TABLET PO (08:02)
[2020-06-05] MEDS: FOLIC ACID 1 MG TABLET PO (08:02)
[2020-06-05] MEDS: EUCERIN CREAM 120 GM JAR 1 APPLIC TOPICAL (08:03)
--- NOTE | 2020-06-05 09:48 | PM.IMPN ---
Progress Note: A&P Assessment and Plan (1) Lower extremity weakness: Code(s): R29.898 - Other symptoms and signs involving the musculoskeletal system Status: Acute Assessment and Plan: This is the patients main complaint -likely due to deconditioning. PT and OT have been ordered. He is a mod assist right now -Continue PT and OT, may need placement -MRI of the brain is normal and lumbar spine normal -Neuropathy? RLS? Other neurological conditions seem less likely. Will order ceruloplasmin due to eye abnormality -Neurology consulted (2) PNA (pneumonia): Code(s): J18.9 - Pneumonia, unspecified organism Status: Acute Assessment and Plan: Noted on CT of the lung -Speech therapy saw the pt and there was no evidence of aspiration -Continue ceftriaxone and flagyl -patient states he is coughing less (3) Heme positive stool: Code(s): R19.5 - Other fecal abnormalities Status: Acute Assessment and Plan: Noted on sample -Pt has possible colitis -he has been having dark stool for about 7 days and his hemoglobin is dropping -Protonix 40 mg b.i.d. started -patient has no abdominal pain, but would benefit from EGD -will repeat hemoglobin later this afternoon -Continue ceftriaxone and flagyl -GI consulted, recommends colonoscopy in near future. I would also recommend an EGD (4) Colitis: Code(s): K52.9 - Noninfective gastroenteritis and colitis, unspecified Status: Acute Assessment and Plan: see above -Stool studies sent -diarrhea improving -C diff less likely due to no antibiotic use, only 1 bowel movement a day, and no leukocytosis -likely causing his hypokalemia (5) Hematuria: Qualifiers: Hematuria type: unspecified type Qualified Code(s): R31.9 - Hematuria, unspecified Code(s): R31.9 - Hematuria, unspecified Status: Acute Assessment and Plan: No mention of this on exam today -urine culture negative - Patient has tiny stones in the bladder. -recommend seeing urology outpt (6) Alcohol abuse: Code(s): F10.10 - Alcohol abuse, uncomplicated Status: Acute Assessment and Plan: The patient tells me that he has drinks about a half a pt of vodka a day -no signs of withdraw on exam -Continue ativan and librium PRN as needed (he has not required either throughout his stay so far) (7) Tobacco abuse: Code(s): Z72.0 - Tobacco use Status: Acute Assessment and Plan: He smokes about 6-8 cigarettes a day -no nicotine patch desired -Advised to quit smoking (8) Weakness: Code(s): R53.1 - Weakness Status: Acute Assessment and Plan: As above (9) Anemia: Code(s): D64.9 - Anemia, unspecified Status: Acute Assessment and Plan: Could be due to alcohol abuse and possible upper GI bleed -will need EGD and colonoscopy -iron studies reviewed. Iron, B12, and folate normal (10) Fibroma: Code(s): D21.9 - Benign neoplasm of connective and other soft tissue, unspecified Status: Chronic Assessment and Plan: He has a very large fibroma on the right buttocks -f/u outpt (11) Debility: Code(s): R53.81 - Other malaise Status: Acute Assessment and Plan: as above Subjective Date/time seen: 06/05/20 09:48 Interval history: Pt is a 64 y/o male here for leg weakness. Patient was seen today and states he is feeling stronger. He was able to stand up and walk with a walker although he did feel weak he felt better than he has. He continues to have about 1 episode of diarrhea a day and says they are dark stools. This has been going on for about a week which is unusual for him. He denies lightheadedness, dizziness, chest pain, shortness of breath, fevers, chills, abdominal pain or leg swelling. He is eating and drinking okay Exam Narrative: Exam Narrative: General: Well develo
[2020-06-05] MEDS: PANTOPRAZOLE SODIUM IV 40 MG VIAL IV PUSH ×2 (11:13→20:12)
[2020-06-05 11:24] LABS: Hematocrit 23.6 % (42.0-52.0); Hemoglobin 7.9 g/dL (14.0-18.0)
[2020-06-06 06:00] VITALS: BP 119/77; PULSE 95; RESP 16; TEMP 36.1; O2SAT 100
[2020-06-06 06:03] LABS: Hematocrit 23.1 % (42.0-52.0); Hemoglobin 7.6 g/dL (14.0-18.0)
[2020-06-06 06:30] LABS: Anion Gap 6 mmol/L (8-16); Blood Urea Nitrogen 8 mg/dL (9-20); Calcium 8.9 mg/dL (8.4-10.2); Carbon Dioxide 30 mmol/L (22-30); Chloride 104 mmol/L (98-107); Estimated CRCL calculation 98 ml/min; Estimated Glomerular Filt Rate > 60; Glucose 120 mg/dL (75-110); Magnesium 1.5 mg/dL (1.6-2.3); Phosphorus 2.8 mg/dL (2.5-4.5); Potassium 2.7 mmol/L (3.4-5.0); Sodium 140 mmol/L (137-145)
[2020-06-06] MEDS: POTASSIUM CHLORIDE 20 MEQ PACKET (FOR LIQUID) 40 MEQ PO (06:52)
[2020-06-06] MEDS: MAGNESIUM SULF 2 GM/WATER 50ML 2 GM/50 ML BAG IVPB (07:35)
[2020-06-06 08:00] VITALS: PULSE 95; RESP 16; O2SAT 100
[2020-06-06] MEDS: metroNIDAZOLE 500 MG/ISO 100ML 500 MG/100 ML BAG 100 MG IVPB ×2 (08:48→18:02)
[2020-06-06] MEDS: MAGNESIUM OXIDE 400 MG TABLET PO (08:56)
[2020-06-06] MEDS: FOLIC ACID 1 MG TABLET PO (08:57)
[2020-06-06] MEDS: THIAMINE HCL 100 MG TABLET PO (08:57)
[2020-06-06] MEDS: PANTOPRAZOLE SODIUM IV 40 MG VIAL IV PUSH ×2 (08:57→20:08)
[2020-06-06] MEDS: POTASSIUM PHOS/SODIUM PHOS 250 MG TABLET PO ×2 (08:57→18:33)
[2020-06-06] MEDS: EUCERIN CREAM 120 GM JAR 1 APPLIC TOPICAL (08:58)
--- NOTE | 2020-06-06 09:50 | WPDGIPROGNO ---
Progress Note: A&P Additional Plan GI [facility] 06 Jun 2020 Denies abdominal pain, nausea, vomiting, BRBPR, melena VSS soft/NT No MILAGROS Hct 23. B12 724, Fol 14, ferr 1200, fe 160, tibc 315, %sat 51. TSH 0.8 ASSESSMENT AND PLAN:: A. Patient with chronic blood loss anemia, heme-positive stool, abnormal imaging digestive with CT scan showing wall thickening in the sigmoid colon: - Concern for gastrointestinal source of blood loss - No evidence of active GI bleeding - Follow H and H and transfuse as needed - Avoid aspirin, nonsteroidals, and anticoagulants - Anemia lab evaluation consistent with AOCD - Colonoscopy and upper endoscopy Monday B. Abnormal LFTs and history of alcohol abuse: - May be related to alcohol plus or minus relation to his illness, which could include urinary tract infection - Alkaline phosphatase already appears to be improved; observe for now - Hold on further liver evaluation at this time - Alcohol cessation is stressed. C. Weight loss, may be related to any one of a number of problems, but overall inability to care for himself complicated by alcohol abuse. Case discussed with Hospitalist Jadon who agrees with plan. Thanks, [facility] [phone] Subjective Date/time seen: 06/06/20 09:50 Objective Data Vital Signs Vital Signs: Vital Signs - 24 hr 06/05/20 14:26 06/05/20 21:32 06/06/20 06:00 Temperature 35.9 C L 36.1 C L 36.1 C L Pulse Rate 98 96 95 Respiratory Rate 18 18 16 Blood Pressure 103/81 112/81 119/77 Pulse Oximetry 94 100 100 Intake/Output Intake/Output: Intake & Output 06/03/20 06/04/20 06/05/20 06/06/20 23:59 23:59 23:59 23:59 Intake Total 2480 2048 1890 840 Output Total 200 350 300 250 Balance 2280 1698 1590 590 Meds/Results Medications: Active Medications Generic Name Dose Route Start Last Admin Trade Name Freq PRN Reason Stop Dose Admin Chlordiazepoxide HCl 25 mg 06/03/20 15:25 Chlordiazepoxide (*Crx) 25 Mg Capsule PO Q6H PRN Withdrawal Folic Acid 1 mg 06/04/20 09:00 06/06/20 08:57 Folic Acid 1 Mg Tablet PO 1 mg DAILY GERARDO Administration Ceftriaxone Sodium/Dextrose 1 gm in 50 mls @ 100 mls/hr 06/04/20 09:00 06/05/20 12:48 Rocephin 1 Gm/D5w 50 Ml IVPB Infused Q24H GERARDO Infusion Metronidazole 500 mg in 100 mls @ 100 mls/hr 06/04/20 09:00 06/06/20 08:48 Flagyl 500 Mg/Iso Soln 100 Ml IVPB 100 mls/hr Q8H GERARDO Administration Potassium Chloride 500 mls @ 125 mls/hr 06/06/20 06:34 06/06/20 06:52 Kcl 40 Meq/D5w 500 Ml Peripheral IVPB 06/06/20 10:33 125 mls/hr ONCE ONE Administration Lorazepam 0.5 mg 06/03/20 15:25 Lorazepam Inj (*Crx) 2 Mg/Ml Vial IV PUSH Q6H PRN Anxiety Magnesium Oxide 400 mg 06/05/20 09:00 06/06/20 08:56 Magnesium Oxide 400 Mg Tablet PO 400 mg QAM GERARDO Administration Miconazole Nitrate 1 applic 06/03/20 21:00 06/06/20 08:57 Miconazole 2% Antifungal Ointment 56 Gm TOPICAL 1 applic Q12HR GERARDO Administration Multi-Ingred Cream/Lotion/Oil/Oint 1 applic 06/04/20 09:00 06/06/20 08:58 Eucerin Cream 120 Gm Jar TOPICAL 1 applic QAM GERARDO Administration Pantoprazole Sodium 40 mg 06/05/20 09:45 06/06/20 08:57 Pantoprazole Sodium Iv 40 Mg Vial IV PUSH 40 mg Q12HR GERARDO Administration Sodium Phosphate 250 mg 06/05/20 09:00 06/06/20 08:57 Potassium Phos/Sodium Phos 250 Mg Tablet PO 250 mg BID GERARDO Administration Thiamine HCl 100 mg 06/04/20 09:00 06/06/20 08:57 Thiamine Hcl 100 Mg Tablet PO 100 mg QAM GERARDO Administration Radiology Results: ITS Impressions Chest X-Ray 06/03/20 10:06 IMPRESSION: 1. Small amount of right infrahilar atelectasis or infection. 2. Hyperinflation. Abdomen/Pelvis CT 06/03/20 12:04 IMPRESSION: 1. Tiny stones in the urinary bladder which may cap for the patient's hematuria. 2. Possible pulmonary emboli in the right lower lobe. Dedicated CT of the pulmonary arteries is recommended. T
--- NOTE | 2020-06-06 09:55 | PM.IMPN ---
Progress Note: A&P Assessment and Plan (1) Lower extremity weakness: Code(s): R29.898 - Other symptoms and signs involving the musculoskeletal system Status: Acute Assessment and Plan: This is the patients main complaint -likely due to deconditioning. PT and OT have been ordered. He is a mod assist right now but feeling improved -Continue PT and OT, may need placement -MRI of the brain is normal and lumbar spine normal -Neuropathy? RLS? Other neurological conditions seem less likely. ceruloplasmin ordered due to eye abnormality -Neurology consulted -will start Requip tonight to see if that helps his discomfort at night (2) PNA (pneumonia): Code(s): J18.9 - Pneumonia, unspecified organism Status: Acute Assessment and Plan: Noted on CT of the lung -Speech therapy saw the pt and there was no evidence of aspiration -Continue ceftriaxone and flagyl -patient states he has no cough anymore and he is swallowing better (3) Heme positive stool: Code(s): R19.5 - Other fecal abnormalities Status: Acute Assessment and Plan: Noted on sample -Pt has possible colitis -he has been having dark stool for about 7 days and his hemoglobin is slowly dropping -Protonix 40 mg b.i.d. -patient has no abdominal pain -plan for EGD and colonoscopy Monday after speaking with Dr. christiansen today -Continue ceftriaxone and flagyl (4) Colitis: Code(s): K52.9 - Noninfective gastroenteritis and colitis, unspecified Status: Acute Assessment and Plan: see above -Stool studies sent -diarrhea improving -C diff less likely due to no antibiotic use, only 1 bowel movement a day, and no leukocytosis -likely causing his hypokalemia (5) Hematuria: Qualifiers: Hematuria type: unspecified type Qualified Code(s): R31.9 - Hematuria, unspecified Code(s): R31.9 - Hematuria, unspecified Status: Acute Assessment and Plan: No mention of this on exam today -urine culture negative - Patient has tiny stones in the bladder. -recommend seeing urology outpt (6) Alcohol abuse: Code(s): F10.10 - Alcohol abuse, uncomplicated Status: Acute Assessment and Plan: The patient tells me that he has drinks about a half a pt of vodka a day -no signs of withdraw on exam -Continue ativan and librium PRN as needed (he has not required either throughout his stay so far) (7) Tobacco abuse: Code(s): Z72.0 - Tobacco use Status: Acute Assessment and Plan: He smokes about 6-8 cigarettes a day -no nicotine patch desired -Advised to quit smoking (8) Weakness: Code(s): R53.1 - Weakness Status: Acute Assessment and Plan: As above (9) Anemia: Code(s): D64.9 - Anemia, unspecified Status: Acute Assessment and Plan: Could be due to alcohol abuse and possible upper GI bleed -will need EGD and colonoscopy, now planned for Monday -iron studies reviewed. Iron, B12, and folate normal (10) Fibroma: Code(s): D21.9 - Benign neoplasm of connective and other soft tissue, unspecified Status: Chronic Assessment and Plan: He has a very large fibroma on the right buttocks -f/u outpt (11) Debility: Code(s): R53.81 - Other malaise Status: Acute Assessment and Plan: as above (12) Hypokalemia: Code(s): E87.6 - Hypokalemia Status: Acute Assessment and Plan: Likely due to diarrhea and low magnesium -patient received p.o. and IV potassium this morning -repeat later today -magnesium given as it is slightly low -monitor with daily labs Subjective Date/time seen: 06/06/20 09:55 Interval history: Pt is a 64 y/o male here for weakness. Patient was seen today and states he is feeling stronger than when he was admitted but still weak. He has been working with physical therapy and thinks he is getting str
[2020-06-06 14:00] VITALS: BP 120/78; PULSE 92; RESP 16; TEMP 36.1; O2SAT 98
[2020-06-06 14:51] LABS: Anion Gap 8 mmol/L (8-16); Blood Urea Nitrogen 7 mg/dL (9-20); Calcium 8.9 mg/dL (8.4-10.2); Carbon Dioxide 24 mmol/L (22-30); Chloride 105 mmol/L (98-107); Estimated CRCL calculation 98 ml/min; Estimated Glomerular Filt Rate > 60; Glucose 106 mg/dL (75-110); Potassium 3.6 mmol/L (3.4-5.0); Sodium 137 mmol/L (137-145)
[2020-06-06] MEDS: POTASSIUM CHLORIDE 20 MEQ TABLET PO (18:02)
[2020-06-06 19:30] LABS: SARS-CoV-2 RNA PCR Negative
[2020-06-06] MEDS: rOPINIRole HCL 0.25 MG TABLET PO (20:08)
[2020-06-06 21:52] VITALS: BP 125/82; PULSE 92; RESP 18; TEMP 36.1; O2SAT 100
[2020-06-07] VITALS (10 sets, daily range): BP systolic 102–136; BP diastolic 67–94; PULSE 83–97; RESP 14–20; TEMP 35.6–36.4; O2SAT 99–100
[2020-06-07] MEDS: metroNIDAZOLE 500 MG/ISO 100ML 500 MG/100 ML BAG 100 MG IVPB ×3 (00:24→18:09)
[2020-06-07 06:19] LABS: Hematocrit 21.4 % (42.0-52.0); Hemoglobin 7.1 g/dL (14.0-18.0); Mean Corpuscular HGB Conc 33.2 g/dl (32-36); Mean Corpuscular Hemoglobin 30.9 pg (26-34); Mean Platelet Volume 9.3 fl (7.4-10.4); Platelet Count Result 277 k/mm3 (150-375); Red Cell Distribution Width 21.1 % (11.5-14.5); White Blood Count 4.8 K/mm3 (4.5-10.0)
[2020-06-07 06:33] LABS: Alanine Aminotransferase 19 U/L (4-50); Albumin Level 2.7 g/dL (3.5-5.1); Alkaline Phosphatase 96 U/L (38-126); Anion Gap 5 mmol/L (8-16); Aspartate Amino Transferase 58 U/L (17-59); Bilirubin,Total 0.3 mg/dL (0.2-1.3); Blood Urea Nitrogen 5 mg/dL (9-20); CRP 3.3 mg/dL (<1.0); Calcium 8.6 mg/dL (8.4-10.2); Carbon Dioxide 29 mmol/L (22-30); Chloride 104 mmol/L (98-107); Estimated CRCL calculation 98 ml/min; Estimated Glomerular Filt Rate > 60; Glucose 108 mg/dL (75-110); Magnesium 1.5 mg/dL (1.6-2.3); Sodium 138 mmol/L (137-145)
[2020-06-07 06:44] LABS: Immature Reticulocyte Fraction 41.3 % (3.0-15.9); Reticulocyte Hemoglobin Conten 32.9 pg (28.2-35.7); Reticulocyte Percent 2.49 % (0.7-4.3); Reticulocytes Absolute 0.06 B/L (32.2-175.7)
[2020-06-07] MEDS: POTASSIUM PHOS/SODIUM PHOS 250 MG TABLET PO ×2 (07:56→18:10)
[2020-06-07] MEDS: FOLIC ACID 1 MG TABLET PO (07:57)
[2020-06-07] MEDS: MAGNESIUM OXIDE 400 MG TABLET PO (07:57)
[2020-06-07] MEDS: PANTOPRAZOLE SODIUM IV 40 MG VIAL IV PUSH ×2 (07:57→20:11)
[2020-06-07] MEDS: THIAMINE HCL 100 MG TABLET PO (07:57)
[2020-06-07] MEDS: MAGNESIUM SULF 2 GM/WATER 50ML 2 GM/50 ML BAG IVPB (08:21)
[2020-06-07] MEDS: SODIUM CHLORIDE 0.9% IV 250 ML 30 ML IV CONT (08:27)
--- NOTE | 2020-06-07 08:57 | PCPTNOTE ---
Attempted to to see patient for PT, however per RN: Patient is receiving blood at this time and to check back around 13:00 for therapy.
[2020-06-07] MEDS: EUCERIN CREAM 120 GM JAR 1 APPLIC TOPICAL (10:01)
[2020-06-07] MEDS: BISACODYL 5 MG TABLET EC 10 MG PO ×3 (12:04→20:11)
[2020-06-07] MEDS: MAGNESIUM CITRATE 300 ML BTL PO (12:04)
[2020-06-07] MEDS: polyethylene glycoL 3350 238 GM BOTTLE PO (12:04)
[2020-06-07] MEDS: SIMETHICONE 80 MG TAB.CHEW 160 MG PO ×3 (12:08→20:11)
--- NOTE | 2020-06-07 12:12 | PM.IMPN ---
Progress Note: A&P Assessment and Plan (1) Lower extremity weakness: Code(s): R29.898 - Other symptoms and signs involving the musculoskeletal system Status: Acute Assessment and Plan: This is the patients main complaint -likely due to deconditioning. Continue to work with PT and OT. -will likely need placement depending on how he is doing with therapy at the end of his stay -MRI of the brain is normal and lumbar spine normal -Neuropathy? RLS? Other neurological conditions seem less likely. ceruloplasmin ordered due to eye abnormality -Neurology consulted -continue Requip (2) PNA (pneumonia): Code(s): J18.9 - Pneumonia, unspecified organism Status: Acute Assessment and Plan: Noted on CT of the lung -Speech therapy saw the pt and there was no evidence of aspiration -Continue ceftriaxone and flagyl -patient states he has no cough anymore and he is swallowing better (3) Heme positive stool: Code(s): R19.5 - Other fecal abnormalities Status: Acute Assessment and Plan: Noted on sample -Pt has possible colitis -he has been having dark stool for about 7 days and his hemoglobin is slowly dropping -Protonix 40 mg b.i.d. -patient has no abdominal pain -plan for EGD and colonoscopy Monday (4) Colitis: Code(s): K52.9 - Noninfective gastroenteritis and colitis, unspecified Status: Acute Assessment and Plan: see above -Stool studies sent, no white blood cells seen -diarrhea improving -C diff less likely due to no antibiotic use, only 1 bowel movement a day, and no leukocytosis -likely causing his hypokalemia -continue ceftriaxone and Flagyl (5) Hematuria: Qualifiers: Hematuria type: unspecified type Qualified Code(s): R31.9 - Hematuria, unspecified Code(s): R31.9 - Hematuria, unspecified Status: Acute Assessment and Plan: No mention of this on exam today -urine culture negative - Patient has tiny stones in the bladder. -recommend seeing urology outpt (6) Alcohol abuse: Code(s): F10.10 - Alcohol abuse, uncomplicated Status: Acute Assessment and Plan: The patient tells me that he has drinks about a half a pt of vodka a day -no signs of withdraw on exam -Continue ativan and librium PRN as needed (he has not required either throughout his stay so far) (7) Tobacco abuse: Code(s): Z72.0 - Tobacco use Status: Acute Assessment and Plan: He smokes about 6-8 cigarettes a day -no nicotine patch desired -Advised to quit smoking (8) Weakness: Code(s): R53.1 - Weakness Status: Acute Assessment and Plan: As above (9) Anemia: Code(s): D64.9 - Anemia, unspecified Status: Acute Assessment and Plan: Could be due to alcohol abuse and possible upper GI bleed -last hemoglobin 7.1. He is getting a EGD/colonoscopy tomorrow and had black stools. He was given 1 unit of blood -iron studies reviewed. Iron, B12, and folate normal (10) Fibroma: Code(s): D21.9 - Benign neoplasm of connective and other soft tissue, unspecified Status: Chronic Assessment and Plan: He has a very large fibroma on the right buttocks -f/u outpt (11) Debility: Code(s): R53.81 - Other malaise Status: Acute Assessment and Plan: as above (12) Hypokalemia: Code(s): E87.6 - Hypokalemia Status: Acute Assessment and Plan: Likely due to diarrhea and low magnesium -IV potassium ordered this morning -will give oral potassium later today -magnesium given as it is slightly low -monitor with daily labs Subjective Date/time seen: 06/07/20 12:12 Interval history: Pt is a 64 y/o male here for weakness. Patient was seen today and is doing well. He is had diarrhea today which is an improvement for him. He still feels weak in his legs when he worked with physical the
--- NOTE | 2020-06-07 13:28 | PCPTNOTE ---
Attempted to see patient for PT this date, however patient declined.
--- NOTE | 2020-06-07 17:21 | WPDANESEPP ---
Anes - Eval Pre Procedure Procedure: EGD/Colonoscopy Date/Time: 06/07/20 17:21 Surgeon: Kash Preop Diagnosis: anemia, positive occult stool Pre Op Diagnosis: weakness, failure to thrive, hematuria Patient Data Age: 64 Gender: M Height: 1.88 m Weight: 64.5 kg Last Vital Signs Temp 35.6 C L 06/07/20 14:00 Pulse 89 06/07/20 14:00 Resp 18 06/07/20 14:00 BP 125/91 H 06/07/20 14:00 Pulse Ox 100 06/07/20 14:00 Allergies Allergy/AdvReac Type Severity Reaction Status Date / Time No Known Allergies Allergy Verified 06/03/20 08:38 Home Medications Medication Instructions Recorded Confirmed Type No Home Medications 06/03/20 06/03/20 History Laboratory Tests 06/05/20 06/06/20 06/07/20 11:19 04:18 05:58 WBC 4.8 K/mm3 K/mm3 (4.5-10.0) RBC 2.30 M/mm3 L M/mm3 (4.6-6.20) Hgb 7.1 g/dL L g/dL (14.0-18.0) Hct 21.4 % L % (42.0-52.0) MCV 93.0 fl fl (80-100) MCH 30.9 pg pg (26-34) MCHC 33.2 g/dl g/dl (32-36) RDW 21.1 % H % (11.5-14.5) Plt Count 277 k/mm3 k/mm3 (150-375) MPV 9.3 fl fl (7.4-10.4) Absolute Retic Percent Retic Immature Retic Fraction Retic Hgb Content Sodium Potassium Chloride Carbon Dioxide Anion Gap BUN Creatinine Estim Creat Clear Calc Estimated GFR Glucose Calcium Magnesium Total Bilirubin Direct Bilirubin AST ALT Alkaline Phosphatase C-Reactive Protein Total Protein Albumin SARS-CoV-2 RNA (RT-PCR) Negative Blood Type A Positive Antibody Screen Negative Crossmatch See Detail 06/07/20 06/07/20 05:58 05:58 WBC RBC Hgb Hct MCV MCH MCHC RDW Plt Count MPV Absolute Retic 0.06 B/L L B/L (32.2-175.7) Percent Retic 2.49 % % (0.7-4.3) Immature Retic Fraction 41.3 % H % (3.0-15.9) Retic Hgb Content 32.9 pg pg (28.2-35.7) Sodium 138 mmol/L mmol/L (137-145) Potassium 3.0 mmol/L L mmol/L (3.4-5.0) Chloride 104 mmol/L mmol/L (98-107) Carbon Dioxide 29 mmol/L mmol/L (22-30) Anion Gap 5 mmol/L L mmol/L (8-16) BUN 5 mg/dL L mg/dL (9-20) Creatinine 0.60 mg/dL L mg/dL (0.7-1.3) Estim Creat Clear Calc 98 ml/min ml/min Estimated GFR > 60 (59 - ) Glucose 108 mg/dL mg/dL (75-110) Calcium 8.6 mg/dL mg/dL (8.4-10.2) Magnesium 1.5 mg/dL L mg/dL (1.6-2.3) Total Bilirubin 0.3 mg/dL mg/dL (0.2-1.3) Direct Bilirubin 0.0 mg/dL mg/dL (0-0.3) AST 58 U/L U/L (17-59) ALT 19 U/L U/L (4-50) Alkaline Phosphatase 96 U/L U/L (38-126) C-Reactive Protein 3.3 mg/dL H mg/dL (<1.0) Total Protein 5.0 g/dL L g/dL (6.3-8.2) Albumin 2.7 g/dL L g/dL (3.5-5.1) SARS-CoV-2 RNA (RT-PCR) Blood Type Antibody Screen Crossmatch Patient hx anesthesia problems: none Family hx anesthesia problems: none PMFSH Past Medical History Medical History (Updated 06/07/20 @ 17:24 by Nelia Valladares CRNA) Anemia Elevated LFTs Fibroma Heme positive stool Lipoma of buttock Tobacco abuse Weakness Surgical History Surgical History No pertinent past surgical history Family History Family History Mother Cancer Father Cerebrovascular accident Social History Social History Social Histo
[2020-06-07] MEDS: POTASSIUM CHLORIDE 20 MEQ TABLET PO (18:10)
[2020-06-07] MEDS: rOPINIRole HCL 0.25 MG TABLET PO (20:11)
[2020-06-08] VITALS (9 sets, daily range): BP systolic 95–135; BP diastolic 64–102; PULSE 68–97; RESP 14–25; TEMP 35.6–36.6; O2SAT 97–100
[2020-06-08] MEDS: metroNIDAZOLE 500 MG/ISO 100ML 500 MG/100 ML BAG 100 MG IVPB ×3 (00:24→17:29)
[2020-06-08 06:18] LABS: Hematocrit 28.1 % (42.0-52.0); Hemoglobin 9.4 g/dL (14.0-18.0)
[2020-06-08 06:28] LABS: Alanine Aminotransferase 20 U/L (4-50); Albumin Level 2.8 g/dL (3.5-5.1); Alkaline Phosphatase 99 U/L (38-126); Anion Gap 6 mmol/L (8-16); Aspartate Amino Transferase 50 U/L (17-59); Bilirubin,Total 0.4 mg/dL (0.2-1.3); Blood Urea Nitrogen 3 mg/dL (9-20); Calcium 8.7 mg/dL (8.4-10.2); Carbon Dioxide 24 mmol/L (22-30); Chloride 107 mmol/L (98-107); Estimated CRCL calculation 85 ml/min; Estimated Glomerular Filt Rate > 60; Glucose 110 mg/dL (75-110); Magnesium 1.7 mg/dL (1.6-2.3); Potassium 2.8 mmol/L (3.4-5.0); Sodium 137 mmol/L (137-145)
[2020-06-08] MEDS: MAGNESIUM SULF 2 GM/WATER 50ML 2 GM/50 ML BAG IVPB (07:37)
[2020-06-08] MEDS: FOLIC ACID 1 MG TABLET PO (08:57)
[2020-06-08] MEDS: MAGNESIUM OXIDE 400 MG TABLET PO (08:57)
[2020-06-08] MEDS: THIAMINE HCL 100 MG TABLET PO (08:57)
[2020-06-08] MEDS: PANTOPRAZOLE SODIUM IV 40 MG VIAL IV PUSH ×2 (08:58→20:16)
[2020-06-08] MEDS: EUCERIN CREAM 120 GM JAR 1 APPLIC TOPICAL (08:58)
[2020-06-08] MEDS: POTASSIUM PHOS/SODIUM PHOS 250 MG TABLET PO ×2 (08:58→17:27)
[2020-06-08] MEDS: POTASSIUM CHLORIDE 20 MEQ TABLET 40 MEQ PO ×2 (10:01→18:14)
--- NOTE | 2020-06-08 12:49 | PM.IMPN ---
Progress Note: A&P Assessment and Plan (1) Lower extremity weakness: Code(s): R29.898 - Other symptoms and signs involving the musculoskeletal system Status: Acute Assessment and Plan: This is the patients main complaint -likely due to deconditioning. Continue to work with PT and OT. -he improved with physical therapy and blood yesterday -will likely need placement depending on how he is doing with therapy at the end of his stay -MRI of the brain is normal and lumbar spine normal -Neuropathy? RLS? Other neurological conditions seem less likely. ceruloplasmin ordered due to eye abnormality -Neurology consulted -continue Requip started here at this hospital stay (2) PNA (pneumonia): Code(s): J18.9 - Pneumonia, unspecified organism Status: Acute Assessment and Plan: Noted on CT of the lung -Speech therapy saw the pt and there was no evidence of aspiration -Continue ceftriaxone and flagyl (5 of7 doses complete) -patient states he has no cough anymore and he is swallowing better (3) Heme positive stool: Code(s): R19.5 - Other fecal abnormalities Status: Acute Assessment and Plan: Noted on sample -Pt has possible colitis -he has been having dark stool for about 7 days and his hemoglobin was slowly dropping -he was transfuse 1 unit of blood 06/07/20 and hemoglobin improved now 9.4 -Protonix 40 mg b.i.d. -patient has no abdominal pain -plan for EGD and colonoscopy later today (4) Colitis: Code(s): K52.9 - Noninfective gastroenteritis and colitis, unspecified Status: Acute Assessment and Plan: see above -Stool studies sent, no white blood cells seen -diarrhea improving -C diff less likely due to no antibiotic use, only 1 bowel movement a day, and no leukocytosis -likely causing his hypokalemia -continue ceftriaxone and Flagyl (5) Hematuria: Qualifiers: Hematuria type: unspecified type Qualified Code(s): R31.9 - Hematuria, unspecified Code(s): R31.9 - Hematuria, unspecified Status: Acute Assessment and Plan: No mention of this on exam today -urine culture negative - Patient has tiny stones in the bladder. -recommend seeing urology outpt (6) Alcohol abuse: Code(s): F10.10 - Alcohol abuse, uncomplicated Status: Acute Assessment and Plan: The patient tells me that he has drinks about a half a pt of vodka a day -no signs of withdraw on exam -Continue ativan and librium PRN as needed (he has not required either throughout his stay so far) (7) Tobacco abuse: Code(s): Z72.0 - Tobacco use Status: Acute Assessment and Plan: He smokes about 6-8 cigarettes a day -no nicotine patch desired -Advised to quit smoking (8) Weakness: Code(s): R53.1 - Weakness Status: Acute Assessment and Plan: As above (9) Anemia: Code(s): D64.9 - Anemia, unspecified Status: Acute Assessment and Plan: Could be due to alcohol abuse and possible upper GI bleed -last hemoglobin 9.4 -status post 1 unit of blood 06/07/20 -await colonoscopy and EGD -iron studies reviewed. Iron, B12, and folate normal (10) Fibroma: Code(s): D21.9 - Benign neoplasm of connective and other soft tissue, unspecified Status: Chronic Assessment and Plan: He has a very large fibroma versus lipoma on the right buttocks -f/u outpt surgery -he has a pressure wound on his left buttocks likely due to offloading from the mass on the right. Continue to get out of bed and sit in a chair. Mepilex ordered (11) Debility: Code(s): R53.81 - Other malaise Status: Acute Assessment and Plan: as above (12) Hypokalemia: Code(s): E87.6 - Hypokalemia Status: Acute Assessment and Plan: Likely due to diarrhea and low magnesium -IV and oral potassium ordered this morning -will recheck jamie
--- NOTE | 2020-06-08 13:18 | WPDANESEFPP ---
Anes - Eval Final PreProcedure Day of Procedure 06/08/20 13:18 Patient weight: thin Heart: regular rate and rhythm Lungs: clear to auscultation and normal air movement Airway: Mallampati scale class II Neurological: alert and oriented Last oral intake: >/= 8 hours ASA classification: III Emergent: no Anesthetic plan: proceed Anesthesia type and monitoring: general GIVS and standard monitoring Informed Consent: The patient's anesthetic plan and its attendant risks and benefits were discussed with the patient/family/POA. Questions were solicited and answers provided to the satisfaction of the patient/family/POA.
--- NOTE | 2020-06-08 13:19 | PC.NURSE ---
Pt to GI lab per jim. Report to BRITTANY Flores.
--- NOTE | 2020-06-08 14:03 | WPDGIPROGNO ---
Progress Note: A&P Additional Plan GI Kash 08 Jun 2020 Denies abdominal pain, nausea, vomiting, BRBPR, melena VSS soft/NT No MILAGROS Hct 23->->28. B12 724, Fol 14, ferr 1200, fe 160, tibc 315, %sat 51. TSH 0.8 ASSESSMENT AND PLAN:: A. Patient with chronic blood loss anemia, heme-positive stool, abnormal imaging digestive with CT scan showing wall thickening in the sigmoid colon: - Concern for gastrointestinal source of blood loss - No evidence of active GI bleeding - Follow H and H and transfuse as needed - Avoid aspirin, nonsteroidals, and anticoagulants - Anemia lab evaluation consistent with AOCD - Colonoscopy and upper endoscopy today B. Abnormal LFTs and history of alcohol abuse: - May be related to alcohol plus or minus relation to his illness, which could include urinary tract infection - Alkaline phosphatase already appears to be improved; observe for now - Hold on further liver evaluation at this time - Alcohol cessation is stressed. C. Weight loss, may be related to any one of a number of problems, but overall inability to care for himself complicated by alcohol abuse. Thanks, [facility] [phone] Subjective Date/time seen: 06/08/20 14:03 Objective Data Vital Signs Vital Signs: Vital Signs - 24 hr 06/07/20 19:52 06/08/20 05:28 06/08/20 13:21 Temperature 36.4 C L 36.6 C Pulse Rate 86 68 97 Respiratory Rate 14 14 16 Blood Pressure 118/84 119/66 135/102 H Pulse Oximetry 100 98 97 Intake/Output Intake/Output: Intake & Output 06/05/20 06/06/20 06/07/20 06/08/20 23:59 23:59 23:59 23:59 Intake Total 1890 2910 2320 1050 Output Total 019 513 9638 200 Balance 1590 2660 485 850 Meds/Results Medications: Active Medications Generic Name Dose Route Start Last Admin Trade Name Freq PRN Reason Stop Dose Admin Chlordiazepoxide HCl 25 mg 06/03/20 15:25 Chlordiazepoxide (*Crx) 25 Mg Capsule PO Q6H PRN Withdrawal Folic Acid 1 mg 06/04/20 09:00 06/08/20 08:57 Folic Acid 1 Mg Tablet PO 1 mg DAILY GERARDO Administration Ceftriaxone Sodium/Dextrose 1 gm in 50 mls @ 100 mls/hr 06/04/20 09:00 06/08/20 09:36 Rocephin 1 Gm/D5w 50 Ml IVPB Infused Q24H GERARDO Infusion Metronidazole 500 mg in 100 mls @ 100 mls/hr 06/04/20 09:00 06/08/20 10:01 Flagyl 500 Mg/Iso Soln 100 Ml IVPB Infused Q8H GERARDO Infusion Lactated Ringer's 1,000 mls @ 150 mls/hr 06/08/20 13:25 Lr - Lactated Ringers Iv IV CONT .Q6H40M GERARDO Lorazepam 0.5 mg 06/03/20 15:25 Lorazepam Inj (*Crx) 2 Mg/Ml Vial IV PUSH Q6H PRN Anxiety Magnesium Oxide 400 mg 06/05/20 09:00 06/08/20 08:57 Magnesium Oxide 400 Mg Tablet PO 400 mg QAM GERARDO Administration Miconazole Nitrate 1 applic 06/03/20 21:00 06/08/20 08:59 Miconazole 2% Antifungal Ointment 56 Gm TOPICAL 1 applic Q12HR GERARDO Administration Multi-Ingred Cream/Lotion/Oil/Oint 1 applic 06/04/20 09:00 06/08/20 08:58 Eucerin Cream 120 Gm Jar TOPICAL 1 applic QAM GERARDO Administration Pantoprazole Sodium 40 mg 06/05/20 09:45 06/08/20 08:58 Pantoprazole Sodium Iv 40 Mg Vial IV PUSH 40 mg Q12HR GERARDO Administration Ropinirole HCl 0.25 mg 06/06/20 21:00 06/07/20 20:11 Ropinirole Hcl 0.25 Mg Tablet PO 0.25 mg HS GERARDO Administration Sodium Phosphate 250 mg 06/05/20 09:00 06/08/20 08:58 Potassium Phos/Sodium Phos 250 Mg Tablet PO 250 mg BID GERARDO Administration Thiamine HCl 100 mg 06/04/20 09:00 06/08/20 08:57 Thiamine Hcl 100 Mg Tablet PO 100 mg QAM GERARDO Administration Radiology Results: ITS Impressions Chest X-Ray 06/03/20 10:06 IMPRESSION: 1. Small amount of right infrahilar atelectasis or infection. 2. Hyperinflation. Abdomen/Pelvis CT 06/03/20 12:04 IMPRESSION: 1. Tiny stones in the urinary bladder which may cap for the patient's hematuria. 2. Possible pulmonary emboli in the right lower lobe. Dedicated CT of the pulmonary arteries is recommended. This f
[2020-06-08] MEDS: LACTATED RINGERS 1,000 ML 150 ML IV CONT (14:04)
--- NOTE | 2020-06-08 15:06 | PC.NURSE ---
Pt returned from GI lab per jim. Report received from BRITTANY Flores.
--- NOTE | 2020-06-08 15:33 | PCOTNOTE ---
The OT treatment was unable to be completed this date. Will continue plan of care tomorrow, 06/09/2020.
[2020-06-08 15:37] LABS: Potassium 3.3 mmol/L (3.4-5.0)
--- NOTE | 2020-06-08 17:18 | P.OP_ITS ---
Procedure Note - Detailed Date of procedure: 06/08/20 Pre-op diagnosis: weakness, failure to thrive, hematuria Chronic blood loss anemia; abnormal imaging-digestive Procedure performed: EGD and colonoscopy Implants: None Anesthesia: MAC Surgeon: Tao Hewitt MD Estimated blood loss (mL): 0 Drains: No Pathology: none sent Complications: No immediate complications Condition: stable Disposition: floor Findings: [facility] [address] [place] [address] TAO HEWITT MD, FACG, FACP COLONOSCOPY and EGD EGD INDICATION: chronic blood loss anemia, heme-positive stool, abnormal imaging digestive with CT scan showing wall thickening in the sigmoid colon. POST-OP: Normal. SEDATION: Per Anesthesia With the patient in the left lateral decubitus position, the Fujinon endoscope was used to easily intubate the esophagus and advanced to the third duodenum. Careful inspection of the mucosa was made upon insertion and withdrawal of the endoscope with retroflexion in the stomach. Findings: Esophagus: SC Jx @ 45 cm. The esophagus is normal. No esophagitis, stricture, mass or Fields?s. Stomach: Fundus, body and antrum normal. No ulceration, erosion, inflammation, AVM or malignancy. Duodenum: Normal in the bulb, second and third duodenum. COLONOSCOPY INDICATION: chronic blood loss anemia, heme-positive stool, abnormal imaging digestive with CT scan showing wall thickening in the sigmoid colon. POST-OP: Mild diverticulosis. PREP: Good. With the patient in the left lateral decubitus position, the Fujinon colonoscope was introduced into the rectum and advanced easily to the Terminal Ileum. Careful inspection of the mucosa was made upon insertion and withdrawal of the endoscope. FINDINGS: Terminal ileum: distal 5 cm normal. Cecum, ascending colon, transverse colon, descending colon and rectum including retroflexion normal. Sigmoid colon: mild diverticulosis. No masses, polyps, AVMs, coliti seen. No complications, blood loss or implants. Hct 23->21->28. B12 724, Fol 14, ferr 1200, fe 160, tibc 315, %sat 51. TSH 0.8 ASSESSMENT AND PLAN:: A. Patient with chronic blood loss anemia, heme-positive stool, abnormal imaging digestive with CT scan showing wall thickening in the sigmoid colon: - No source of gi bleed found; anemia lab evaluation consistent with AOCD - No active GI bleeding - Follow H and H and transfuse as needed - Avoid aspirin, nonsteroidals, and anticoagulants B. Abnormal LFTs and history of alcohol abuse: - May be related to alcohol plus or minus relation to his illness, which could include UTI - Alkaline phosphatase already appears to be improved; observe for now - Hold on further liver evaluation at this time - Alcohol cessation is stressed. C. Weight loss, may be related to any one of a number of problems, but overall inability to care for himself complicated by alcohol abuse. D. Mild diverticulosis: observe. E. Unremarkable colonoscopy: screening colonoscopy in ten years Case reviewed with Hospitalist. Dispo per Primary service. OP GI follow-up as needed. Thanks, [facility] [phone]
[2020-06-08] MEDS: rOPINIRole HCL 0.25 MG TABLET PO (20:16)
[2020-06-09] MEDS: metroNIDAZOLE 500 MG/ISO 100ML 500 MG/100 ML BAG 100 MG IVPB ×2 (00:32→09:40)
[2020-06-09 05:36] VITALS: BP 128/92; PULSE 94; RESP 16; TEMP 36.3; O2SAT 100
[2020-06-09 05:37] LABS: Hematocrit 26.3 % (42.0-52.0); Hemoglobin 8.6 g/dL (14.0-18.0)
[2020-06-09 05:52] LABS: Alanine Aminotransferase 17 U/L (4-50); Albumin Level 2.7 g/dL (3.5-5.1); Alkaline Phosphatase 91 U/L (38-126); Anion Gap 4 mmol/L (8-16); Aspartate Amino Transferase 38 U/L (17-59); Bilirubin,Total 0.2 mg/dL (0.2-1.3); Blood Urea Nitrogen 3 mg/dL (9-20); Calcium 8.7 mg/dL (8.4-10.2); Carbon Dioxide 25 mmol/L (22-30); Chloride 108 mmol/L (98-107); Estimated CRCL calculation 98 ml/min; Estimated Glomerular Filt Rate > 60; Glucose 134 mg/dL (75-110); Magnesium 1.6 mg/dL (1.6-2.3); Phosphorus 3.2 mg/dL (2.5-4.5); Potassium 3.8 mmol/L (3.4-5.0); Sodium 137 mmol/L (137-145)
--- NOTE | 2020-06-09 07:58 | WPDANESPN ---
Anes - Prog Note Post-Op Date/Time: 06/09/20 07:58 Cardiovascular status: normal Respiratory status: normal Airway patency: baseline Mental status: baseline Post-Op hydration status: normal Vital Signs: Last Vital Signs Temp 36.3 C L 06/09/20 05:36 Pulse 94 06/09/20 05:36 Resp 16 06/09/20 05:36 BP 128/92 H 06/09/20 05:36 Pulse Ox 100 06/09/20 05:36 Pain Score (VAS): no complaints I/O: Intake & Output 06/08/20 06/08/20 06/09/20 15:59 23:59 07:59 Intake Total 800 840 900 Output Total 200 600 Balance 600 840 300 Laboratory Tests 06/09/20 05:30 06/09/20 05:30 06/08/20 06/09/20 06/09/20 15:22 05:30 05:30 Hgb 8.6 L Hct 26.3 L Sodium 137 Potassium 3.3 L 3.8 Chloride 108 H Carbon Dioxide 25 Anion Gap 4 L BUN 3 L Creatinine 0.60 L Estim Creat Clear Calc 98 Estimated GFR > 60 Glucose 134 H Calcium 8.7 Phosphorus 3.2 Magnesium 1.6 Total Bilirubin 0.2 Direct Bilirubin 0.0 AST 38 ALT 17 Alkaline Phosphatase 91 Total Protein 5.0 L Albumin 2.7 L Microbiology 06/04/20 01:19 Stool Stool for WBCs - Final 06/04/20 01:19 Stool Escherichia coli Shiga Toxins - Final 06/04/20 01:19 Stool Campylobacter Culture - Final 06/04/20 01:19 Stool Salmonella/Shigella Culture - Final 06/04/20 01:19 Stool Cryptosporidium Exam - Final 06/04/20 01:19 Stool Giardia Antigen ([place]OR[place]TA) - Final Post-procedural complaints: none Patient Feedback: Patient satisfied with anesthetic care.
[2020-06-09] MEDS: MAGNESIUM SULF 2 GM/WATER 50ML 2 GM/50 ML BAG IVPB (09:09)
[2020-06-09] MEDS: EUCERIN CREAM 120 GM JAR 1 APPLIC TOPICAL (09:16)
[2020-06-09] MEDS: FOLIC ACID 1 MG TABLET PO (09:17)
[2020-06-09] MEDS: THIAMINE HCL 100 MG TABLET PO (09:17)
[2020-06-09] MEDS: PANTOPRAZOLE SODIUM IV 40 MG VIAL IV PUSH (09:17)
[2020-06-09] MEDS: MAGNESIUM OXIDE 400 MG TABLET PO (09:17)
[2020-06-09] MEDS: POTASSIUM PHOS/SODIUM PHOS 250 MG TABLET PO ×2 (09:17→17:25)
--- NOTE | 2020-06-09 12:14 | PM.DS ---
DS: Admitting Diagnosis Admitting Diagnosis Admitting Diagnosis: Weakness DS: Discharge Diagnosis Discharge Diagnosis (1) Lower extremity weakness: Code(s): R29.898 - Other symptoms and signs involving the musculoskeletal system Status: Acute Assessment and Plan: Date of Admission 06/03/20 Date of Discharge 06/09/20 Mr. Gee is a 64yo M who presented to the ED for evaluation of generalized weakness and overall inability to care for himself. He has been living at home with three roommates for some time and it is unclear exactly how long he has been feeling weak. 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 Regarding his weakness, MRI of the brain and lumbar spine were normal. He was started on Requip and was seen by neurology as well. He was noted to have pneumonia on CT chest with a cough; COVID negative, and was treated with Rocephin and flagyl also to cover for a possible colitis noted on imaging. He was evaluated by speech therapy and no overt s/s of aspiration were noted. He described about 1 week history of dark stool and hgb was dropping. Hgb as low as 7.1 symptomatic with weakness and dizziness he received 1 unit packed RBC after which Hgb remained low but stable, 8.6 on day of discharge. He underwent EGD/colonoscopy with Dr Hewitt 06/08 which showed some diverticulosis but otherwise no evidence of GI bleeding. Potassium and magnesium were repeatedly low and replaced; discharged with scripts for supplementation and repeat labs. He was also noted to have some hematuria that resolved and was provided urology contact information for outpatient referral. He continued to work with PT/OT and was felt to be a good candidate for continued therapy at rehab. He was hemodynamically stable for discharge to [facility] on 06/09/20. He was instructed that he may follow up with general surgery in the future regarding the lipoma as well. (2) PNA (pneumonia): Code(s): J18.9 - Pneumonia, unspecified organism Status: Acute Assessment and Plan: Noted on CT of the lung -Speech therapy saw the pt and there was no evidence of aspiration -Completed 6 days of ceftriaxone and flagyl, discharged with oral augmentin - Cough resolved, no SOB day of discharge, tolerating room air. COVID negative. (3) Heme positive stool: Code(s): R19.5 - Other fecal abnormalities Status: Acute Assessment and Plan: Noted on sample -Pt has possible colitis -he has been having dark stool for about 7 days and his hemoglobin was slowly dropping -he was transfuse 1 unit of blood 06/07/20 and hemoglobin improved now 9.4 -Protonix 40 mg b.i.d. -patient has no abdominal pain -06/08 EGD negative and colonoscopy shows diverticulosis (4) Colitis: Code(s): K52.9 - Noninfective gastroenteritis and colitis, unspecified Status: Acute Assessment and Plan: -Stool studies sent, no white blood cells seen -diarrhea improving -C diff less likely due to no antibiotic use, only 1 bowel movement a day, and no leukocytosis -likely causing his hypokalemia -continue ceftriaxone and Flagyl (5) Hematuria: Qualifiers: Hematuria type: unspecified type Qualified Code(s): R31.9 - Hematuria, unspecified Code(s): R31.9 - Hematuria, unspecified Status: Acute Assessment and Plan: Resolved. -urine culture negative - Patient has tiny stones in the bladder on imgaing. -recommend seeing urology outpt (6) Alcohol abuse: Code(s): F10.10 - Alcohol abuse, uncomplicated Status: Acute Assessment and Plan: The patient noted that he has drinks about a half a pt of
[2020-06-09 14:29] VITALS: BP 115/88; PULSE 110; RESP 16; TEMP 35.9; O2SAT 100
[2020-06-09] MEDS: rOPINIRole HCL 0.25 MG TABLET PO (20:10)
[2020-06-09 20:21] LABS: Ceruloplasmin 44 mg/dL (18-36)
== END 2020-06-09 21:05 | DRG 351 ==
LOC: ANHED 11:37 → ANH3MED 12:41
PROVIDERS: Internal Medicine Gastroenterology; Nurse Practitioner; Physician Assistant; Student in an Organized Health Care Education/Training Program; Admitting Provider Family Medicine; Emergency Provider Emergency Medicine; Visit Provider Physician Assistant
PROC: 0DJ08ZZ Inspection of Upper Intestinal Tract, Via Natural or Artificial Opening Endoscopic (ICD-10-PCS; CPT 43235; principal; 2020-06-08 12:30)
DX: R29.898 Other symptoms and signs involving the musculoskeletal system (principal); Z20.828 Contact with and (suspected) exposure to other viral communicable diseases; D17.1 Benign lipomatous neoplasm of skin and subcutaneous tissue of trunk; Z91.81 History of falling; H53.2 Diplopia; N21.0 Calculus in bladder; K52.9 Noninfective gastroenteritis and colitis, unspecified; F17.210 Nicotine dependence, cigarettes, uncomplicated; R63.4 Abnormal weight loss; Z68.1 Body mass index [BMI] 19.9 or less, adult; R31.9 Hematuria, unspecified; Y90.9 Presence of alcohol in blood, level not specified; J18.9 Pneumonia, unspecified organism; D50.0 Iron deficiency anemia secondary to blood loss (chronic); E87.6 Hypokalemia; F10.10 Alcohol abuse, uncomplicated; K57.90 Diverticulosis of intestine, part unspecified, without perforation or abscess without bleeding; R79.89 Other specified abnormal findings of blood chemistry
CPT/HCPCS: 36415; 36430; 51701; 70110; 70450; 70553; 71045; 71275; 72148; 74177; 80048; 80053; 80076; 81001; 82274; 82390; 82525; 82550; 82607; 82728; 82746; 83540; 83550; 83605; 83735; 84100; 84132; 84443; 84466; 85014; 85018; 85025; 85027; 85046; 85610; 85730; 86140; 86703; 86850; 86900; 86901; 86923; 87015; 87040; 87045; 87046; 87086; 87269; 87272; 87427; 87635; 89055; 92610; 93005; 93880; 93970; 96360; 96361; 96365; 96367; 97110; 97116; 97161; 97165; 97530; 97535; 99285; A9270; A9577; C9113; C9803; G0378; G0379; G0432; J0696; J2704; J3475; J3480; J7030; J7050; J7120; P9016; Q9967; U0003

== ENCOUNTER 2020-11-15 01:39 | Emergency (ER) | payer OTHER, SELFPAY ==
[2020-11-15 01:42] VITALS: BP 137/90; PULSE 106; RESP 14; TEMP 37.1; O2SAT 98
--- NOTE | 2020-11-15 01:57 | PC.NURSE ---
called [place] due to confusion when the procedure was done, BRITTANY wong at [place] reports pt had surgery on the October at [facility].
--- NOTE | 2020-11-15 02:26 | ED.GENADULT ---
HPI - General Adult General Chief complaint: Unspecified Stated complaint: incision bleeding Time Seen by Provider: 11/15/20 01:43 Source: RN notes reviewed History of Present Illness HPI narrative: Patient presents to emergency department from [facility] via EMS for bleeding from his wound. Patient states he had a mass removed from his right buttocks at [facility] on 11/06/[address] Wheeler. Patient states he has been doing well and this evening they began noting bleeding from the wound staff and tried different dressings as well as direct pressure. None of this stopped the bleeding the patient was transferred for further evaluation patient denies any pain or injury denies any dizziness or lightheadedness denies any blood thinner use Related Data Allergies Allergy/AdvReac Type Severity Reaction Status Date / Time No Known Allergies Allergy Verified 11/15/20 01:46 Review of Systems Review of Systems: Narrative: Gen.: Denies fevers or chills ENT: Denies congestion Respiratory: Denies shortness of breath or cough CV: Denies chest pain or palpitations GI: Denies abdominal pain nausea, emesis or diarrhea Musculoskeletal: Denies back pain or muscle pain Neuro: Denies numbness, tingling, weakness or focal weakness Skin: See HPI Except as documented, all other systems reviewed and negative PMFSH Past Medical History Medical History Anemia Elevated LFTs Fibroma Heme positive stool Lipoma of buttock Tobacco abuse Weakness Surgical History Surgical History No pertinent past surgical history Family History Family History Mother Cancer Father Cerebrovascular accident Social History Social History Social History: The patient is not and has a daughter. He is disabled. He lives with roommates. He states that he drinks about a half a pt of vodka a day. Patient smokes about 6-8 cigarettes a day. He is a full code. He does not have a durable power director digital advertising for healthcare. He said his sister Lyndsey may be able to the the the power director digital advertising. He wishes to be a full code. No illicit drugs or marijuana. Smoking status: Current every day smoker Tobacco type: cigarettes Alcohol intake: current Drinks per week: 10 Substance use: never Gender identity (if verbalized by the patient): Male Spiritual care concerns: No Exam Narrative: Exam Narrative: APPEARANCE: No acute distress, nontoxic, resting in bed EYES: EOMI HEENT: Normocephalic, atraumatic, OMM RESPIRATORY: No respiratory distress ABDOMINAL: Soft, nontender, nondistended, no rebound or guarding MUSCULOSKELETAl: No clubbing, cyanosis or edema. NEURO: Awake and alert. Following commands, speech normal, no focal deficits SKIN:: Warm, dry. Right buttocks has a large wound over the inferior aspect that progresses towards the groin sutures are intact approximate mid wound has an area of decreased healing and scarring with a continuous venous ooze no signs of infection PSYCHIATRIC: Normal affect/mood, Course Course Emergency Course: Called and discussed with Dr. Thomas for Dr. Wheeler for surgery recommends trying Surgicel with pressure on wound Surgicel used with direct pressure for 5 minutes wound continues to have continuous oozing with spreading of blood on dressing call back and discussed with Dr. Thomas at this time recommends transfer to the ED at [place] for further evaluation Patient accepted to [place] ED by Dr. Dyer Vital Signs Vital signs: Vital Signs Temperature 98.8 F 11/15/20 01:42 Pulse Rate 106 H 11/15/20 01:42 Respiratory Rate 14 11/15/20 01:42 Blood Pressure 137/90 11/15/20 01:42 Pulse Oximetry 98 11/15/20 01:42 Temperature 98.8 F 11/15/20 01:42 Pulse Rate 100 11/15/20 03:30 Respiratory Rate
[2020-11-15 02:53] VITALS: BP 130/90; PULSE 98; RESP 16; O2SAT 99
--- NOTE | 2020-11-15 03:29 | PC.NURSE ---
placed surgicel, non adhereing dressing, and abd over wound. elian is currently holding pressure for 5 minutes per kameron verbal order.
[2020-11-15 03:30] VITALS: BP 133/89; PULSE 100; RESP 18; O2SAT 99
--- NOTE | 2020-11-15 03:35 | PC.NURSE ---
md came to room 09 to look at dressing, states in 5 minutes to check to see if blood has expanded.
--- NOTE | 2020-11-15 04:09 | PC.NURSE ---
called [facility] to request transport. ETA 30 minutes
[2020-11-15 04:54] VITALS: BP 132/80; PULSE 95; RESP 16; O2SAT 100
== END 2020-11-15 04:56 | disposition short-term general hospital (02) ==
PROVIDERS: Emergency Provider Emergency Medicine; PCP Internal Medicine
DX: L76.21 Postprocedural hemorrhage of skin and subcutaneous tissue following a dermatologic procedure (principal); Z86.2 Personal history of diseases of the blood and blood-forming organs and certain disorders involving the immune mechanism; F17.210 Nicotine dependence, cigarettes, uncomplicated
CPT/HCPCS: 99285